=== PATIENT | female | born 1950 | race African-American/Black ===

== ENCOUNTER 2019-04-09 03:47 | Emergency (ER) | payer MEDICARE, OTHER ==
[~2019-04-09] VITALS: Ht 157.5 cm; Wt 117.9 kg
[~2019-04-09 03:47] MED LIST: ALLO100T PO; ATOR40TA59 PO; Amoxicillin/Potassium Clav PO; CALC600T4 PO; CARV25TA2 PO; CILO100T PO; CLOP75TA PO; FOLI1TAB16 PO; FURO40TA4 PO; HYDR-2868 PO; INSU100C4 SQ; INSU100I13 SQ; LORA10TA3 PO; MAGN400T5 PO; NIAC1000 PO; OMEG500C PO; POTA20TA12 PO; TELM80TA PO; VENTOLIN HFA18 GM IH
[2019-04-09 04:12] LABS: BASO # 0.1 x10^3/uL (0.0-0.2); BASO % 1 % (0-3); EOS % 0 % (0-3); HEMATOCRIT 43.3 % (36.0-47.0); HEMOGLOBIN 14.1 g/dL (12.0-15.5); LYMPH # 0.9 x10^3/uL (1.0-4.8); LYMPH % 10 % (24-48); MEAN CORPUSCULAR HEMOGLOBIN 28 pg (25-35); MEAN CORPUSCULAR HGB CONC 33 g/dL (31-37); MEAN CORPUSCULAR VOLUME 84 fL (79-100); MONO # 0.5 x10^3/uL (0.0-1.1); MONO % 6 % (0-9); NEUT # 7.4 x10^3/uL (1.8-7.7); NEUT % 83 % (31-73); PLATELET COUNT 288 x10^3/uL (140-400); RED BLOOD COUNT 5.14 x10^6/uL (3.50-5.40); RED CELL DISTRIBUTION WIDTH 15.1 % (11.5-14.5)
[2019-04-09 04:18] LABS: CALCIUM 9.1 mg/dL (8.5-10.1); CREATININE 2.2 mg/dL (0.6-1.0); GFR 26.7; POTASSIUM 3.8 mmol/L (3.5-5.1)
[2019-04-09 04:19] LABS: BILIRUBIN,URINE NEGATIVE (NEG); CLARITY,URINE CLEAR; COLOR,URINE YELLOW; NITRITE,URINE NEGATIVE (NEG); PROTEIN,URINE 30 mg/dL (NEG-TRACE); UROBILINOGEN,URINE 0.2 mg/dL (0.2 mg/dL)
[2019-04-09 04:24] LABS: ALBUMIN 3.1 g/dL (3.4-5.0); ALBUMIN/GLOBULIN RATIO 0.7 (1.0-1.7); TOTAL BILIRUBIN 0.2 mg/dL (0.2-1.0); TOTAL PROTEIN 7.4 g/dL (6.4-8.2)
[2019-04-09 04:30] LABS: SQUAMOUS EPITHELIAL CELL,UR MOD /LPF
[2019-04-09 04:31] LABS: BACTERIA,URINE FEW /HPF (0-FEW); RBC,URINE RARE /HPF (0-2)
[2019-04-09 05:30] VITALS: BP 159/71
--- NOTE | 2019-04-09 05:30 | PHYS DOC ---
Past Medical History Past Medical History: CVA, Diabetes-Type II, High Cholesterol, Hypertension, [place], Other Additional Past Medical Histor: gout Past Surgical History: Hysterectomy, Other Additional Past Surgical Histo: thyroid, left leg stents Alcohol Use: None Drug Use: None Adult General Chief Complaint Chief Complaint: HYPOGLYCEMIA HPI HPI 68-year-old female presents to the emergency department with complaints of altered mental status. Patient has underlying history of insulin-dependent diabetes, chronic kidney disease stage III she presents to the emergency departm ent via EMS after episode of hypoglycemia home. Patients states she was sleeping in the chair he noticed that she was difficult to arouse and had a little bit of emesis at that time. EMS was called for unresponsive. Blood sugar was recorded as low, she is provided with D50, 1 amp prior to arrival to the hospital. Upon arrival patient was alert and oriented 3. Blood sugar remained 130s. Review of Systems Review of Systems Constitutional: Denies fever or chills [] Respiratory: Denies cough or shortness of breath [] Cardiovascular: No additional information not addressed in HPI [] GI: Denies abdominal pain, nausea, vomiting, bloody stools or diarrhea [] : Denies dysuria or hematuria [] Musculoskeletal: Denies back pain or joint pain [] Neurologic: Denies headache, focal weakness or sensory changes [] All other systems were reviewed and found to be within normal limits, except as documented in this note. Allergies Allergies Allergies Coded Allergies Type Severity Reaction Last Updated Verified Penicillins Allergy Intermediate 04/09/19 Yes iodine Allergy Intermediate 09/16/14 Yes latex Allergy Intermediate Rash 02/20/14 Yes Physical Exam Physical Exam Constitutional: Well developed, well nourished, no acute distress, non-toxic appearance. [] HENT: Normocephalic, atraumatic, bilateral external ears normal, oropharynx moist, no oral exudates, nose normal. [] Eyes: PERRLA, EOMI, conjunctiva normal, no discharge. [] Cardiovascular:Heart rate regular rhythm, no murmur [] Lungs & Thorax: Bilateral breath sounds clear to auscultation [] Abdomen: Bowel sounds normal, soft, no tenderness, no masses, no pulsatile masses. [] Skin: Warm, dry, no erythema, no rash. [] Extremities: No tenderness, no edema. [] Neurologic: Alert and oriented X 3, no focal deficits noted. [] Psychologic: Affect normal, judgement normal, mood normal. [] Current Patient Data Lab Values Laboratory Tests Test 04/09/19 03:51 04/09/19 03:52 04/09/19 04:10 04/09/19 05:12 Glucose (Fingerstick) 123 mg/dL (70-99) H 119 mg/dL (70-99) H White Blood Count 9.0 x10^3/uL (4.0-11.0) Red Blood Count 5.14 x10^6/uL (3.50-5.40) Hemoglobin 14.1 g/dL (12.0-15.5) Hematocrit 43.3 % (36.0-47.0) Mean Corpuscular Volume 84 fL (79-100) Mean Corpuscular Hemoglobin 28 pg (25-35) Mean Corpuscular Hemoglobin Concent 33 g/dL (31-37) Red Cell Distribution Width 15.1 % (11.5-14.5) H Platelet Count 288 x10^3/uL (140-400) Neutrophils (%) (Auto) 83 % (31-73) H Lymphocytes (%) (Auto) 10 % (24-48) L Monocytes (%) (Auto) 6 % (0-9) Eosinophils (%) (Auto) 0 % (0-3) Basophils (%) (Auto) 1 % (0-3) Neutrophils # (Auto) 7.4 x10^3/uL (1.8-7.7) Lymphocytes # (Auto) 0.9 x10^3/uL (1.0-4.8) L Monocytes # (Auto) 0.5 x10^3/uL (0.0-1.1) Eosinophils # (Auto) 0.0 x10^3/uL (0.0-0.7) Basophils # (Auto) 0.1 x10^3/uL (0.0-0.2) Sodium Level 141 mmol/L (136-145) Potassium Level 3.8 mmol/L (3.5-5.1) Chloride Level 105 mmol/L (98-107) Carbon Dioxide Level 31 mmol/L (21-32) Anion Gap 5 (6-14) L Blood Urea Nitrogen 40 mg/dL (7-20) H Creatinine 2.2 mg/dL (0.6-1.0) H Estimated GFR (Cockcroft-Gault) 26.7 BUN/Creatinine Ratio 18 (6-20) Glucose Level 136 mg/dL (70-99) H Calcium Level 9.1 mg/dL (8.5-10.1) Total Bilirubin 0.2 mg/dL (0.2-1.0) Aspartate Amino Transferase (AST) 30 U/L (15-37) Alanine Aminotransferase (ALT) 25 U/L (14-59) Alkaline Phosphatase 49 U/L (46-116) Total Protein 7.4 g/dL (6.4-8.2) Albumin 3.1 g/dL (3.4-5.0) L Albumin/Globulin Ratio 0.7 (1.0-1.7) L Urine Collection Type Unknown Urine Color Yellow Urine Clarity Clear Urine pH 6.0 Urine Specific [place] 1.015 Urine Protein 30 mg/dL (NEG-TRACE) Urine Glucose (UA) 250 mg/dL (NEG) Urine Ketones (Stick) Negative mg/dL (NEG) Urine Blood Negative (NEG) Urine Nitrite Negative (NEG) Urine Bilirubin Negative (NEG) Urine Urobilinogen Dipstick 0.2 mg/dL (0.2 mg/dL) Urine Leukocyte Esterase Negative (NEG) Urine RBC Rare /HPF (0-2) Urine WBC 1-4 /HPF (0-4) Urine Squamous Epithelial Cells Mod /LPF Urine Bacteria Few /HPF (0-FEW) Urine Mucus Slight /LPF Laboratory Tests 04/09/19 03:52 Laboratory Tests 04/09/19 03:52 EKG EKG [] Radiology/Procedures Radiology/Procedures [] Course & Med Decision Making Course & Med Decision Making Pertinent Labs and Imaging studies reviewed. (See chart for details) []68-year-old female presents to the emergency department with complaints of altered mental status. Patient has underlying history of insulin-dependent diabetes, chronic kidney disease stage III she presents to the emergency department via EMS after episode of hypoglycemia home. Patients states she was sleeping in the chair he noticed that she was difficult to arouse and had a little bit of emesis at that time. EMS was called for unresponsive. Blood sugar was recorded as low, she is provided with D50, 1 amp prior to arrival to the hospital. Upon arrival patient was alert and oriented 3. Blood sugar remained 130s. Patient with episode of hypoglycemia at home prior to arrival EMS arrived with amp of D50 provided BS remained stable in the ER Labs reviewed, CKD 3 BS 119 - 136 Discussed with family at bedside Agree to dc home with follow up as outpatient Return precautions provided Dragon Disclaimer Dragon Disclaimer This electronic medical record was generated, in whole or in part, using a voice recognition dictation system. Departure Departure Impression: Primary Impression: AMS (altered mental status) Additional Impression: Hypoglycemia associated with diabetes Disposition: HOME, SELF-CARE Condition: IMPROVED Referrals: PATRICIA DOLL MD (PCP) Patient Instructions: Hypoglycemia (Low Blood Sugar) Additional Instructions: Recommend follow up with PCP 3 - 5 days Return to the ER with worsening symptoms, intractable pain, fever, altered mental status Tylenol/Motrin as needed for pain Recommend a light snack at night prior to bed to help with hypoglycemic episodes Call diabetic physician to let her know you were in the ER for hypoglycemia Problem Qualifiers Primary Impression: AMS (altered mental status) Altered mental status type: unspecified Qualified Codes: R41.82 - Altered mental status, unspecified CHERELLE FORBES MD Apr 09, 2019 05:30
[2019-04-10] MEDS ORDERED: LEVO25TA4 PO (08:19)
[2019-04-10] MEDS ORDERED: LATA2.5D3 OP (08:19)
== END 2019-04-09 05:50 | disposition home or self-care (01) ==
LOC: ER 03:47
DX: R41.82 Altered mental status, unspecified (principal); E11.649 Type 2 diabetes mellitus with hypoglycemia without coma; R11.10 Vomiting, unspecified; I63.9 Cerebral infarction, unspecified; E78.00 Pure hypercholesterolemia, unspecified; I10 Essential (primary) hypertension; I25.2 Old myocardial infarction; Z90.710 Acquired absence of both cervix and uterus; Z98.890 Other specified postprocedural states; Z88.0 Allergy status to penicillin; Z91.040 Latex allergy status; Z88.1 Allergy status to other antibiotic agents
CPT/HCPCS: 36415; 80053; 81001; 82962; 85025; 99284

== ENCOUNTER 2019-04-10 00:14 | Inpatient (IN) | payer MEDICARE, OTHER ==
[~2019-04-10] VITALS: Ht 157.5 cm; Wt 116.6 kg
--- NOTE | 2019-04-10 01:35 | PHYS DOC ---
Past Medical History Past Medical History: CVA, Diabetes-Type II, High Cholesterol, Hypertension, [place], Other Additional Past Medical Histor: gout Past Surgical History: Hysterectomy, Other Additional Past Surgical Histo: thyroid, left leg stents Smoking: Quit Greater Than 1 Year Alcohol Use: None Drug Use: None Adult General Chief Complaint Chief Complaint: HYPOGLYCEMIA HPI HPI Patient is a 68 year old F with a history of insulin dependent DM that presents to the ED via EMS with hypoglycemia. Family of pt reports that pt was incoherent and difficult to arouse around 2300 yesterday. Per EMS, blood glucose was 26 upon arrival and 46 after given 2x oral glucose and 25g dextrose en route. Review of records shows pt was in the ED yesterday for the same issue and was discharged home. Pt states she is compliant with her insulin and reports that she did not miss her dose or take too much to her knowledge. Pt denies CP, SOB, Ab pain, fevers, chills, or LOC. Review of Systems Review of Systems Constitutional: Denies fever or chills Eyes: Denies redness or eye pain HENT: Denies nasal congestion or sore throat Respiratory: Denies cough or shortness of breath Cardiovascular: Denies chest pain or palpitations GI: Denies abdominal pain, nausea, or vomiting : Denies dysuria or hematuria Musculoskeletal: Denies back pain; reports right leg pain Integument: Denies rash or skin lesions Neurologic: Denies headache, focal weakness or sensory changes, altered mental status secondary to hypoglycemia Complete systems were reviewed and found to be within normal limits, except as documented in this note. Current Medications Current Medications Allergies Allergies Allergies Coded Allergies Type Severity Reaction Last Updated Verified Penicillins Allergy Intermediate 04/09/19 Yes iodine Allergy Intermediate 09/16/14 Yes latex Allergy Intermediate Rash 02/20/14 Yes Physical Exam Physical Exam Constitutional: Well developed, well nourished, no acute distress, non-toxic appearance HENT: Normocephalic, atraumatic, oropharynx moist Eyes: PERRL, EOMI, conjunctiva normal, no discharge Neck: Normal range of motion, no tenderness, supple Cardiovascular: Heart rate normal, regular rhythm Lungs & Thorax: Bilateral breath sounds clear to auscultation, no wheezing Abdomen: Soft, no tenderness Skin: Warm, dry, no erythema, no rash Back: No tenderness, no CVA tenderness Extremities: No tenderness, ROM intact, no edema. Right lower extremity tender to palpation, without deformity, erythema, swelling. 2+ DP and PT pulses bilaterally Neurologic: Alert and oriented X 3, normal motor function, normal sensory function, no focal deficits noted Psychologic: Affect normal, judgement normal, mood normal Current Patient Data Vital Signs Vital Signs Date Time Temp Pulse Resp B/P (MAP) Pulse Ox O2 Delivery O2 Flow Rate FiO2 04/10/19 00:22 86 20 125/59 (81) 100 Room Air 04/10/19 00:18 97.7 97.7 Lab Values Laboratory Tests Test 04/10/19 00:21 04/10/19 00:53 04/10/19 01:20 Glucose (Fingerstick) 104 mg/dL (70-99) H 107 mg/dL (70-99) H White Blood Count 9.5 x10^3/uL (4.0-11.0) Red Blood Count 5.05 x10^6/uL (3.50-5.40) Hemoglobin 14.1 g/dL (12.0-15.5) Hematocrit 42.6 % (36.0-47.0) Mean Corpuscular Volume 85 fL (79-100) Mean Corpuscular Hemoglobin 28 pg (25-35) Mean Corpuscular Hemoglobin Concent 33 g/dL (31-37) Red Cell Distribution Width 15.4 % (11.5-14.5) H Platelet Count 302 x10^3/uL (140-400) Neutrophils (%) (Auto) 70 % (31-73) Lymphocytes (%) (Auto) 19 % (24-48) L Monocytes (%) (Auto) 9 % (0-9) Eosinophils (%) (Auto) 1 % (0-3) Basophils (%) (Auto) 1 % (0-3) Neutrophils # (Auto) 6.6 x10^3/uL (1.8-7.7) Lymphocytes # (Auto) 1.8 x10^3/uL (1.0-4.8) Monocytes # (Auto) 0.8 x10^3/uL (0.0-1.1) Eosinophils # (Auto) 0.1 x10^3/uL (0.0-0.7) Basophils # (Auto) 0.1 x10^3/uL (0.0-0.2) Prothrombin Time 13.5 SEC (11.7-14.0) Prothrombin Time INR 1.1 (0.8-1.1) Activated Partial Thromboplast Time 28 SEC (24-38) Sodium Level 142 mmol/L (136-145) Potassium Level 3.9 mmol/L (3.5-5.1) Chloride Level 102 mmol/L (98-107) Carbon Dioxide Level 29 mmol/L (21-32) Anion Gap 11 (6-14) Blood Urea Nitrogen 37 mg/dL (7-20) H Creatinine 2.4 mg/dL (0.6-1.0) H Estimated GFR (Cockcroft-Gault) 24.1 BUN/Creatinine Ratio 15 (6-20) Glucose Level 96 mg/dL (70-99) Calcium Level 9.3 mg/dL (8.5-10.1) Magnesium Level 2.4 mg/dL (1.8-2.4) Total Bilirubin 0.2 mg/dL (0.2-1.0) Aspartate Amino Transferase (AST) 29 U/L (15-37) Alanine Aminotransferase (ALT) 23 U/L (14-59) Alkaline Phosphatase 57 U/L (46-116) Creatine Kinase 276 U/L (26-192) H Creatine Kinase MB (Mass) 3.0 ng/mL (0.0-3.6) Creatine Kinase MB Relative Index 1.1 % (0-4) Troponin I Quantitative < 0.017 ng/mL (0.000-0.055) Total Protein 7.8 g/dL (6.4-8.2) Albumin 3.3 g/dL (3.4-5.0) L Albumin/Globulin Ratio 0.7 (1.0-1.7) L Lipase 193 U/L (73-393) Laboratory Tests 04/10/19 01:20 Laboratory Tests 04/10/19 01:20 EKG EKG [] Radiology/Procedures Radiology/Procedures PROCEDURE: CHEST AP ONLY AP chest x-ray HISTORY: Altered mental status. FINDINGS: Heart size normal. Aortic arch calcified plaque. No pneumothorax, pulmonary opacities or pleural effusions. Bones are unremarkable. IMPRESSION: No acute process. Electronically signed by: Nasir Shaffer MD (04/10/2019 1:45 AM) [facility] PROCEDURE: TIBIA FIBULA RIGHT Right tibia-fibula AP lateral x-rays HISTORY: Right leg pain. FINDINGS: Meniscal chondrocalcinosis of the knee. No fracture or dislocation of the tibia and fibula. Mild calf edema may be present. IMPRESSION: No acute osseous injury. Electronically signed by: Nasir Shaffer MD (04/10/2019 3:26 AM) [facility] Course & Med Decision Making Course & Med Decision Making Pertinent Labs and Imaging studies reviewed. (See chart for details) Pt is a 68yo F that presents to the ED via EMS for hypoglycemia. Per EMS patients BS was 26 upon arrival and 46 after 2x oral glucose and 25mg of Dextrose. Pts BS up to 106 in the ED. Extensive discussion with patient that due to prior ER visit for hypoglycemia yesterday patient will need to be admitted for further evaluation. Patient was understanding and agreeable with plan. 0200: Pt now reporting R posterior R leg pain. XR of R LE ordered. without acute fracture/dislocation. Patient requiring admission for further evaluation and treatment. Discussed with Dr. Martinez (hospitalist) who is in agreement with admission. Discussed findings and plan with patient and family, who acknowledge understanding and agreement. Dragon Disclaimer Dragon Disclaimer This electronic medical record was generated, in whole or in part, using a voice recognition dictation system. Departure Departure Impression: Primary Impression: Altered mental status Additional Impression: Hypoglycemia Disposition: ADMITTED INPATIENT Admitting Physician: SEVEN Mejia) Condition: STABLE Referrals: PATRICIA DOLL MD (PCP) Problem Qualifiers Primary Impression: Altered mental status Altered mental status type: unspecified Qualified Codes: R41.82 - Altered mental status, unspecified OLESYA ZABALA DO Apr 10, 2019 01:35
[2019-04-10 01:36] LABS: BASO # 0.1 x10^3/uL (0.0-0.2); BASO % 1 % (0-3); EOS # 0.1 x10^3/uL (0.0-0.7); EOS % 1 % (0-3); HEMATOCRIT 42.6 % (36.0-47.0); HEMOGLOBIN 14.1 g/dL (12.0-15.5); LYMPH # 1.8 x10^3/uL (1.0-4.8); LYMPH % 19 % (24-48); MEAN CORPUSCULAR HEMOGLOBIN 28 pg (25-35); MEAN CORPUSCULAR HGB CONC 33 g/dL (31-37); MEAN CORPUSCULAR VOLUME 85 fL (79-100); MONO # 0.8 x10^3/uL (0.0-1.1); MONO % 9 % (0-9); NEUT # 6.6 x10^3/uL (1.8-7.7); NEUT % 70 % (31-73); PLATELET COUNT 302 x10^3/uL (140-400); RED BLOOD COUNT 5.05 x10^6/uL (3.50-5.40); RED CELL DISTRIBUTION WIDTH 15.4 % (11.5-14.5); WHITE BLOOD COUNT 9.5 x10^3/uL (4.0-11.0)
[2019-04-10 01:44] LABS: PROTHROMBIN TIME PATIENT 13.5 SEC (11.7-14.0)
[2019-04-10] MEDS ORDERED: IV DEXTROSE 5% 250 ML BAG. IV PRN (01:45)
[2019-04-10] MEDS ORDERED: ONDANSETRON PF 4 MG/2 ML VIAL. IV PRN (01:45)
[2019-04-10] MEDS ORDERED: DEXTROSE 50% 25 GM / 50ML DISP.SYRIN. IV PRN (01:45)
[2019-04-10 01:46] LABS: CALCIUM 9.3 mg/dL (8.5-10.1); CREATININE 2.4 mg/dL (0.6-1.0); GFR 24.1; POTASSIUM 3.9 mmol/L (3.5-5.1)
--- NOTE | 2019-04-10 01:48 | RAD ---
AP chest x-ray HISTORY: Altered mental status. FINDINGS: Heart size normal. Aortic arch calcified plaque. No pneumothorax, pulmonary opacities or pleural effusions. Bones are unremarkable. IMPRESSION: No acute process. Electronically signed by: Nasir Shaffer MD (04/10/2019 1:45 AM) [facility] [place]
[2019-04-10 01:52] LABS: ALBUMIN 3.3 g/dL (3.4-5.0); ALBUMIN/GLOBULIN RATIO 0.7 (1.0-1.7); MAGNESIUM 2.4 mg/dL (1.8-2.4); TOTAL BILIRUBIN 0.2 mg/dL (0.2-1.0); TOTAL PROTEIN 7.8 g/dL (6.4-8.2)
[2019-04-10] MEDS ORDERED: fentaNYL PF VIAL 100 MCG/2 ML VIAL IVP ONE (02:30)
--- NOTE | 2019-04-10 02:50 | NUR ---
The patient, AMIRA MOTA, 68 y/o, F admitted by ARLENE MORRISON III, DO, was given written information regarding hospital policies, unit procedures and contact persons. RN received report from Maxine CUMMINGS in the ED at 0240, patient was then transported from ED to room 412 via gurney at 0250 with at bedside. RN performed a head to toe assessment at that time, VSS, afebrile, and no pain reported at that time. Bed is in lowest locked position and call light within reach. Valuables were checked and left in the room with the patient. RN will continue to monitor patient closely.
--- NOTE | 2019-04-10 03:28 | RAD ---
Right tibia-fibula AP lateral x-rays HISTORY: Right leg pain. FINDINGS: Meniscal chondrocalcinosis of the knee. No fracture or dislocation of the tibia and fibula. Mild calf edema may be present. IMPRESSION: No acute osseous injury. Electronically signed by: Nasir Shaffer MD (04/10/2019 3:26 AM) [facility]
[2019-04-10 07:00] VITALS: BP 153/70
[2019-04-10] MEDS ORDERED: HYDROcodone/APAP 5/325MG 1 TAB TABLET PO PRN (07:15)
[2019-04-10] MEDS: INSULIN LISPRO 300 UNITS/3 ML VIAL. SQ SCH ×2 (08:00→12:00)
[2019-04-10] MEDS ORDERED: LATA2.5D3 OP (08:19)
[2019-04-10] MEDS ORDERED: LEVO25TA4 PO (08:19)
--- NOTE | 2019-04-10 08:28 | PDOC1 ---
History and Physical Date of Admission Date of Admission DATE: 04/10/19 TIME: 08:13 Identification/Chief Complaint Chief Complaint Altered mental status Source Source: Caregiver, Chart review, Patient History of Present Illness History of Present Illness Ms Marshall is a 68 year old F w/PMHx CVA, Diabetes-Type II, High Cholesterol, Hypertension, PVD, CAD, Gout who presents to the ED via EMS with hypoglycemia. Family of pt reports that pt was incoherent and difficult to arouse around 2300 04/09/19. Per EMS, blood glucose was 26 upon arrival and 46 after given 2x oral glucose and 25g dextrose en route. She was in the ED 04/09/19 for the same issue and was discharged home. Pt states she is compliant with her insulin and reports that she did not miss her dose or take too much to her knowledge. She does not take sulfonylureas or metformin, but does also take trulicity weekly. Pt denies CP, SOB, Abd pain, fevers, chills, LOC. No recent sick contacts. Pt now reporting R posterior R leg pain. XR negative Called for admission on D5 infusion for further treatment. Past Medical History Cardiovascular: CAD, HTN, GA, Hyperlipidemia, Other Pulmonary: Asthma CENTRAL NERVOUS SYSTEM: CVA GI: GERD Psych: Depression Musculoskeletal: Osteoarthritis Endocrine: Diabetes, Hypothyroidism Past Surgical History Past Surgical History: Breast Biopsy, Hysterectomy, Other Family History Family History: Family History Unknown Social History Smoke: No ALCOHOL: none Drugs: None Current Medications Current Medications Current Medications Ondansetron HCl (Zofran) 4 mg PRN Q8HRS PRN IV NAUSEA/VOMITING; Start 04/10/19 at 01:45; Stop 04/11/19 at 01:44 Insulin Human Lispro (HumaLOG) 0-5 UNITS TIDWMEALS SQ ; Start 04/10/19 at 08:00 Dextrose (Dextrose 50%-Water Syringe) 12.5 gm PRN Q15MIN PRN IV SEE COMMENTS; Start 04/10/19 at 01:45 Dextrose (Iv Dextrose 5%) 250 ml PRN Q15MIN PRN IV SEE COMMENTS; Start 04/10/19 at 01:45 Fentanyl Citrate (Fentanyl 2ml Vial) 50 mcg 1X ONCE IVP Last administered on 04/10/19at 02:32; Start 04/10/19 at 02:30; Stop 04/10/19 at 02:31; Status DC Acetaminophen/ Hydrocodone Bitart (Lortab 5/325) 1 tab PRN Q4HRS PRN PO MODERATE PAIN; Start 04/10/19 at 07:15 Active Scripts Active [Amoxicillin/Potassium Clav] 1 TAB Tablet 1 Tab PO BID Reported Calcium (Calcium Carbonate) 600 Mg Tablet 600 Mg PO HS Magnesium Oxide 400 Mg Tablet 2 Tab PO BID Fish Oil ([place]-3 Fatty Acids) 500 Mg Capsule.dr 2,000 Mg PO BID Lantus Solostar (Insulin Glargine,Hum.rec.anlog) 100 Unit/1 Ml Insuln.pen 65 Unit SQ BID Novolog (Insulin Aspart) 100 Unit/1 Ml Cartridge 30 Unit SQ TIDAC Ventolin Hfa Inhaler (Albuterol Sulfate) 18 Gm Hfa.aer.ad 2 Puff IH PRN Q4-6HRS Atorvastatin Calcium 40 Mg Tablet 1 Tab PO QHS Niaspan (Niacin) 1,000 Mg Tab.er.24h 1 Tab PO QHS Potassium Chloride 20 Meq Tab.er.prt 1 Tab PO DAILY Furosemide 40 Mg Tablet 1 Tab PO DAILY Clopidogrel (Clopidogrel Bisulfate) 75 Mg Tablet 1 Tab PO DAILY Hydralazine Hcl 25 Mg Tablet 1 Tab PO BID Allopurinol 100 Mg Tablet 1 Tab PO DAILY Loratadine 10 Mg Tablet 1 Tab PO DAILY Folic Acid 1 Mg Tablet 1 Tab PO DAILY Cilostazol 100 Mg Tablet 1 Tab PO BID Micardis (Telmisartan) 80 Mg Tablet 1 Tab PO HS Carvedilol 25 Mg Tablet 1 Tab PO BID Allergies Allergies: Coded Allergies: Penicillins (Verified Allergy, Intermediate, 04/09/19) iodine (Verified Allergy, Intermediate, 09/16/14) latex (Verified Allergy, Intermediate, Rash, 02/20/14) ROS General: YES: Fatigue, Malaise; No: Chills, Night Sweats, Appetite, Other PSYCHOLOGICAL ROS: No: Anxiety, Behavioral Disorder, Concentration difficultie, Decreased libido, Depression, Disorientation, Hallucinations, Hostility, Irritablity, Memory difficulties, Mood Swings, Obsessive thoughts, Physical abuse, Sexual abuse, Sleep disturbances, Suicidal ideation, Other Eyes: No Blurry vision, No Decreased vision, No Double vision, No Dry eyes, No Excessive tearing, No Eye Pain, No Itchy Eyes, No Loss of vision, No Photophobia, No Scotomata, No Uses contacts, No Uses glasses, No Other HEENT: No: Heacaches, Visual Changes, Hearing change, Nasal congestion, Nasal discharge, Oral lesions, Sinus pain, Sore Throat, Epistaxis, Sneezing, Snoring, Tinnitus, Vertigo, Vocal changes, Other ALLERGY AND IMMUNOLOGY: No: Hives, Insect Bite Sensitivity, Itchy/Watery Eyes, Nasal Congestion, Post Nasal Drip, Seasonal Allergies, Other Hematological and Lymphatic: No: Bleeding Problems, Blood Clots, Blood Transfusions, Brusing, Night Sweats, Pallor, Swollen Lymph Nodes, Other ENDOCRINE: No: Breast Changes, Galactorrhea, Hair Pattern Changes, Hot Flashes, Malaise/lethargy, Mood Swings, Palpitations, Polydipsia/polyuria, Skin Changes, Temperature Intolerance, Unexpected Weight Changes, Other Breast: No New/Changing Breast Lumps, No Nipple changes, No Nipple discharge, N o Other Respiratory: No: Cough, Hemoptysis, Orthopnea, Pleuritic Pain, Shortness of breath, SOB with excertion, Sputum Changes, Stridor, Tachypnea, Wheezing, Other Cardiovascular: No Chest Pain, No Palpitations, No Orthopnea, No Paroxysmal Noc. Dyspnea, No Edema, No Lt Headedness, No Other Gastrointestinal: No Nausea, No Vomiting, No Abdominal Pain, No Diarrhea, No Constipation, No Melena, No Hematochezia, No Other Genitourinary: No Dysuria, No Frequency, No Incontinence, No Hematuria, No Retention, No Discharge, No Urgency, No Pain, No Flank Pain, No Other, No , No , No , No , No , No , No Musculoskeletal: No Gait Disturbance, No Joint Pain, No Joint Stiffness, No Joint Swelling, No Muscle Pain, No Muscular Weakness, No Pain In:, No Swelling In:, No Other Neurological: No Behavorial Changes, No Bowel/Bladder ControlChng, No Confusion, No Dizziness, No Gait Disturbance, No Headaches, No Impaired Coord/balance, No Memory Loss, No Numbness/Tingling, No Seizures, No Speech Problems, No Tremors, No Visual Changes, No Weakness, No Other Skin: No Dry Skin, No Eczema, No Hair Changes, No Lumps, No Mole Changes, No Mottling, No Nail Changes, No Pruritus, No Rash, No Skin Lesion Changes, No Other, No Acne Physical Exam General: Alert, Oriented X3, Cooperative, No acute distress HEENT: Atraumatic, PERRLA, EOMI, Mucous membr. moist/pink Lungs: Clear to auscultation, Normal air movement Heart: S1S2, RRR, no thrills, no rubs, no gallops, no murmurs Abdomen: Normal bowel sounds, Soft, No tenderness, No hepatosplenomegaly, No masses Rectal Exam: not examined Extremities: No clubbing, No cyanosis, No edema, Normal pulses, No tenderness/swelling Skin: No rashes, No breakdown, No significant lesion Neuro: Normal gait, Normal speech, Strength at 5/5 X4 ext, Normal tone, Sensation intact, Cranial nerves 3-12 NL, Reflexes 2+ Psych/Mental Status: Mental status NL, Mood NL Vitals Vitals Vital Signs Date Time Temp Pulse Resp B/P (MAP) Pulse Ox O2 Delivery O2 Flow Rate FiO2 04/10/19 02:50 Room Air 04/10/19 02:32 20 100 04/10/19 02:19 78 143/63 (89) 04/10/19 00:18 97.7 97.7 Labs Labs Laboratory Tests Test 04/10/19 00:21 04/10/19 00:53 04/10/19 01:20 04/10/19 03:44 Glucose (Fingerstick) 104 mg/dL (70-99) 107 mg/dL (70-99) 81 mg/dL (70-99) White Blood Count 9.5 x10^3/uL (4.0-11.0) Red Blood Count 5.05 x10^6/uL (3.50-5.40) Hemoglobin 14.1 g/dL (12.0-15.5) Hematocrit 42.6 % (36.0-47.0) Mean Corpuscular Volume 85 fL (79-100) Mean Corpuscular Hemoglobin 28 pg (25-35) Mean Corpuscular Hemoglobin Concent 33 g/dL (31-37) Red Cell Distribution Width 15.4 % (11.5-14.5) Platelet Count 302 x10^3/uL (140-400) Neutrophils (%) (Auto) 70 % (31-73) Lymphocytes (%) (Auto) 19 % (24-48) Monocytes (%) (Auto) 9 % (0-9) Eosinophils (%) (Auto) 1 % (0-3) Basophils (%) (Auto) 1 % (0-3) Neutrophils # (Auto) 6.6 x10^3/uL (1.8-7.7) Lymphocytes # (Auto) 1.8 x10^3/uL (1.0-4.8) Monocytes # (Auto) 0.8 x10^3/uL (0.0-1.1) Eosinophils # (Auto) 0.1 x10^3/uL (0.0-0.7) Basophils # (Auto) 0.1 x10^3/uL (0.0-0.2) Prothrombin Time 13.5 SEC (11.7-14.0) Prothromb Time International Ratio 1.1 (0.8-1.1) Activated Partial Thromboplast Time 28 SEC (24-38) Sodium Level 142 mmol/L (136-145) Potassium Level 3.9 mmol/L (3.5-5.1) Chloride Level 102 mmol/L (98-107) Carbon Dioxide Level 29 mmol/L (21-32) Anion Gap 11 (6-14) Blood Urea Nitrogen 37 mg/dL (7-20) Creatinine 2.4 mg/dL (0.6-1.0) Estimated GFR (Cockcroft-Gault) 24.1 BUN/Creatinine Ratio 15 (6-20) Glucose Level 96 mg/dL (70-99) Calcium Level 9.3 mg/dL (8.5-10.1) Magnesium Level 2.4 mg/dL (1.8-2.4) Total Bilirubin 0.2 mg/dL (0.2-1.0) Aspartate Amino Transf (AST/SGOT) 29 U/L (15-37) Alanine Aminotransferase (ALT/SGPT) 23 U/L (14-59) Alkaline Phosphatase 57 U/L (46-116) Creatine Kinase 276 U/L (26-192) Creatine Kinase MB (Mass) 3.0 ng/mL (0.0-3.6) Creatine Kinase MB Relative Index 1.1 % (0-4) Troponin I Quantitative < 0.017 ng/mL (0.000-0.055) Total Protein 7.8 g/dL (6.4-8.2) Albumin 3.3 g/dL (3.4-5.0) Albumin/Globulin Ratio 0.7 (1.0-1.7) Lipase 193 U/L (73-393) Test 04/10/19 07:57 Glucose (Fingerstick) 87 mg/dL (70-99) Laboratory Tests Test 04/10/19 00:21 04/10/19 00:53 04/10/19 01:20 04/10/19 03:44 Glucose (Fingerstick) 104 mg/dL (70-99) 107 mg/dL (70-99) 81 mg/dL (70-99) White Blood Count 9.5 x10^3/uL (4.0-11.0) Red Blood Count 5.05 x10^6/uL (3.50-5.40) Hemoglobin 14.1 g/dL (12.0-15.5) Hematocrit 42.6 % (36.0-47.0) Mean Corpuscular Volume 85 fL (79-100) Mean Corpuscular Hemoglobin 28 pg (25-35) Mean Corpuscular Hemoglobin Concent 33 g/dL (31-37) Red Cell Distribution Width 15.4 % (11.5-14.5) Platelet Count 302 x10^3/uL (140-400) Neutrophils (%) (Auto) 70 % (31-73) Lymphocytes (%) (Auto) 19 % (24-48) Monocytes (%) (Auto) 9 % (0-9) Eosinophils (%) (Auto) 1 % (0-3) Basophils (%) (Auto) 1 % (0-3) Neutrophils # (Auto) 6.6 x10^3/uL (1.8-7.7) Lymphocytes # (Auto) 1.8 x10^3/uL (1.0-4.8) Monocytes # (Auto) 0.8 x10^3/uL (0.0-1.1) Eosinophils # (Auto) 0.1 x10^3/uL (0.0-0.7) Basophils # (Auto) 0.1 x10^3/uL (0.0-0.2) Prothrombin Time 13.5 SEC (11.7-14.0) Prothromb Time International Ratio 1.1 (0.8-1.1) Activated Partial Thromboplast Time 28 SEC (24-38) Sodium Level 142 mmol/L (136-145) Potassium Level 3.9 mmol/L (3.5-5.1) Chloride Level 102 mmol/L (98-107) Carbon Dioxide Level 29 mmol/L (21-32) Anion Gap 11 (6-14) Blood Urea Nitrogen 37 mg/dL (7-20) Creatinine 2.4 mg/dL (0.6-1.0) Estimated GFR (Cockcroft-Gault) 24.1 BUN/Creatinine Ratio 15 (6-20) Glucose Level 96 mg/dL (70-99) Calcium Level 9.3 mg/dL (8.5-10.1) Magnesium Level 2.4 mg/dL (1.8-2.4) Total Bilirubin 0.2 mg/dL (0.2-1.0) Aspartate Amino Transf (AST/SGOT) 29 U/L (15-37) Alanine Aminotransferase (ALT/SGPT) 23 U/L (14-59) Alkaline Phosphatase 57 U/L (46-116) Creatine Kinase 276 U/L (26-192) Creatine Kinase MB (Mass) 3.0 ng/mL (0.0-3.6) Creatine Kinase MB Relative Index 1.1 % (0-4) Troponin I Quantitative < 0.017 ng/mL (0.000-0.055) Total Protein 7.8 g/dL (6.4-8.2) Albumin 3.3 g/dL (3.4-5.0) Albumin/Globulin Ratio 0.7 (1.0-1.7) Lipase 193 U/L (73-393) Test 04/10/19 07:57 Glucose (Fingerstick) 87 mg/dL (70-99) Images Images CXR - no acute process VTE Prophylaxis Ordered VTE Prophylaxis Devices: No VTE Pharmacological Prophylaxi: No Assessment/Plan Assessment/Plan A/P: Acute encephalopathy - metabolic 2/2 hypoglycemia [place] - likely vasomotor nephropathy Hypoglycemia - with trulicity dosing may need further observation. D5 H/o CVA - cont plavix Diabetes-Type II - hold insulin and GLP-1 High Cholesterol - cont statin Hypothyroidism - cont levothyroxine Hypertension PVD CAD Gout FEN - ADA PPX - Heparin FULL CODE Dispo - will observe until glucose stabilizes for 4 hours off D5 OLE BAUM MD Apr 10, 2019 08:28
[2019-04-10] MEDS ORDERED: LEVOTHYROXINE 25 MCG TABLET. PO SCH (09:00)
[2019-04-10] MEDS ORDERED: hydrALAZINE 25 MG TABLET PO SCH (09:00)
[2019-04-10] MEDS ORDERED: FOLIC ACID 1 MG TABLET. PO SCH (09:00)
[2019-04-10] MEDS ORDERED: ALLOPURINOL 100 MG TABLET. PO SCH (09:00)
[2019-04-10] MEDS ORDERED: CLOPIDOGREL BISULFATE 75 MG TABLET PO SCH (09:00)
[2019-04-10] MEDS ORDERED: CETIRIZINE HCL 10 MG TABLET. PO SCH (09:00)
[2019-04-10 11:00] VITALS: BP 138/56
[2019-04-10 15:00] VITALS: BP 132/60
--- NOTE | 2019-04-10 15:57 | NUR ---
Discharge Note: AMIRA MOTA [address] [place] [address] Discharge instructions and discharge home medications reviewed with Patient and Spouse re; hypoglycemia and a copy given. All questions have been answered and understanding verbalized. The following instructions and handouts were given: Hypoglycemia Discontinued lines and drains: 1 x PIV tip intact. Patient discharged to home with spouse
[2019-04-10] MEDS ORDERED: LATANOPROST 0.005% OPHTH SOLUTION 2.5ML BOTTLE. OU SCH (21:00)
[2019-04-10] MEDS ORDERED: ATORVASTATIN CALCIUM 40 MG TABLET. PO SCH (21:00)
--- NOTE | 2019-04-12 21:54 | PDOC3 ---
Discharge Summary Visit Information Date of Admission: Apr 10, 2019 Date of Discharge: Apr 10, 2019 Admitting Diagnosis: Acute encephalopathy Final Diagnosis Hypoglycemia Brief Hospital Course Allergies Allergies Coded Allergies Type Severity Reaction Last Updated Verified Penicillins Allergy Intermediate 04/09/19 Yes iodine Allergy Intermediate 09/16/14 Yes latex Allergy Intermediate Rash 02/20/14 Yes Brief Hospital Course Ms Marshall is a 68 year old F w/PMHx CVA, Diabetes-Type II, High Cholesterol, Hypertension, PVD, CAD, Gout who presents to the ED via EMS with hypoglycemia. Family of pt reports that pt was incoherent and difficult to arouse around 2300 04/09/19. Per EMS, blood glucose was 26 upon arrival and 46 after given 2x oral glucose and 25g dextrose en route. She was in the ED 04/09/19 for the same issue a nd was discharged home. Pt states she is compliant with her insulin and reports that she did not miss her dose or take too much to her knowledge. She does not take sulfonylureas or metformin, but does also take trulicity weekly. Pt denies CP, SOB, Abd pain, fevers, chills, LOC. No recent sick contacts. Pt now reporting R posterior R leg pain. XR negative Observed until glucose stabilized for 4 hours off D5 Advised to hold trulicity until f/u and reduce home insulin glargine by 25%. Problem list: Acute encephalopathy - metabolic 2/2 hypoglycemia [place] - likely vasomotor nephropathy Hypoglycemia - with trulicity dosing may need further observation. D5 H/o CVA - cont plavix Diabetes-Type II - hold insulin and GLP-1 High Cholesterol - cont statin Hypothyroidism - cont levothyroxine Hypertension PVD CAD Gout Greater than 135 minutes spent on same day admit and d/c Discharge Information Condition at Discharge: Improved Follow Up: Weeks (1) Disposition/Orders: D/C to Home Scheduled Albuterol Sulfate (Ventolin Hfa Inhaler) 18 Gm Hfa.aer.ad, 2 PUFF IH PRN Q4- 6HRS, #1 (Reported) Entered as Reported by: ISAAC ADAN on 02/20/14 0850 Allopurinol (Allopurinol) 100 Mg Tablet, 1 TAB PO DAILY, #30 Ref 5 (Reported) Entered as Reported by: ISAAC ADAN on 02/20/14 0848 Last Action: Continued on 04/10/19820 by OLE BAUM MD Atorvastatin Calcium (Atorvastatin Calcium) 40 Mg Tablet, 1 TAB PO QHS, #90 Ref 3 (Reported) Entered as Reported by: ISAAC ADAN on 02/20/14 0850 Last Action: Continued on 04/10/19820 by OLE BAUM MD Calcium Carbonate (Calcium) 600 Mg Tablet, 600 MG PO HS, (Reported) Entered as Reported by: ISAAC ADAN on 02/20/14 0854 Carvedilol (Carvedilol) 25 Mg Tablet, 1 TAB PO BID, #180 Ref 1 (Reported) Entered as Reported by: ISAAC ADAN on 02/20/14 0845 Cilostazol (Cilostazol) 100 Mg Tablet, 1 TAB PO BID, #60 Ref 5 (Reported) Entered as Reported by: ISAAC ADAN on 02/20/14 0846 Clopidogrel Bisulfate (Clopidogrel) 75 Mg Tablet, 1 TAB PO DAILY, #90 Ref 1 (Reported) Entered as Reported by: ISAAC ADAN on 02/20/1449 Last Action: Continued on 04/10/19820 by OLE BAUM MD Folic Acid (Folic Acid) 1 Mg Tablet, 1 TAB PO DAILY, #90 Ref 1 (Reported) Entered as Reported by: ISAAC ADAN on 02/20/14 0847 Last Action: Continued on 04/10/19820 by OLE BAUM MD Furosemide (Furosemide) 40 Mg Tablet, 1 TAB PO DAILY, #30 Ref 5 (Reported) Entered as Reported by: ISAAC ADAN on 02/20/14 0849 Hydralazine Hcl (Hydralazine Hcl) 25 Mg Tablet, 1 TAB PO BID, #60 Ref 5 (Reported) Entered as Reported by: ISAAC ADAN on 02/20/14 0848 Last Action: Continued on 04/10/19820 by OLE BAUM MD Insulin Aspart (Novolog) 100 Unit/1 Ml Cartridge, 30 UNIT SQ TIDAC, (Reported) Entered as Reported by: ISAAC ADAN on 02/20/14 0851 Insulin Glargine,Hum.rec.anlog (Lantus Solostar) 100 Unit/1 Ml Insuln.pen, 65 UNIT SQ BID, (Reported) Entered as Reported by: ISAAC ADAN on 02/20/14 0852 Latanoprost (Latanoprost) 2.5 Ml Drops, 1 DROP OP DAILY for 30 Days, (Reported) Entered as Reported by: OLE BAUM MD on 04/10/19818 Last Action: Continued on 04/10/19820 by OLE BAUM MD Levothyroxine Sodium (Levothyroxine Sodium) 25 Mcg Tablet, 25 MCG PO DAILY for hypothyroidism for 30 Days, #30 (Reported) Entered as Reported by: OLE BAUM MD on 04/10/19818 Last Action: Continued on 04/10/19820 by OLE BAUM MD Loratadine (Loratadine) 10 Mg Tablet, 1 TAB PO DAILY, #30 Ref 5 (Reported) Entered as Reported by: ISAAC ADAN on 02/20/14 0847 Last Action: Converted on 04/10/19820 by OLE BAUM MD Magnesium Oxide (Magnesium Oxide) 400 Mg Tablet, 2 TAB PO BID, #30 Ref 5 (Reported) Entered as Reported by: ISAAC ADAN on 02/20/14 0853 Niacin (Niaspan) 1,000 Mg Tab.er.24h, 1 TAB PO QHS, #30 Ref 5 (Reported) Entered as Reported by: ISAAC ADAN on 02/20/14 0850 [place]-3 Fatty Acids (Fish Oil) 500 Mg Capsule.dr, 2,000 MG PO BID, (Reported) Entered as Reported by: ISAAC ADAN on 02/20/14 0853 Potassium Chloride (Potassium Chloride) 20 Meq Tab.er.prt, 1 TAB PO DAILY, #30 Ref 5 (Reported) Entered as Reported by: ISAAC ADAN on 02/20/14 0849 Telmisartan (Micardis) 80 Mg Tablet, 1 TAB PO HS, #30 Ref 5 (Reported) Entered as Reported by: ISAAC ADAN on 02/20/14 0845 Discontinued Medications [Amoxicillin/Potassium Clav] 1 TAB TABLET, 1 TAB PO BID, #20 Prescribed by: ANA LUISA HALL on 09/19/14 1544 OLE BAUM MD Apr 12, 2019 21:54
== END 2019-04-10 15:50 | disposition home or self-care (01) | DRG 637 ==
LOC: ER 00:14 → 4 NORTH 01:30
PROVIDERS: ADMIT Internal Medicine; ATTEND Internal Medicine
DX: E11.649 Type 2 diabetes mellitus with hypoglycemia without coma (principal); G93.41 Metabolic encephalopathy; M19.90 Unspecified osteoarthritis, unspecified site; N17.0 Acute kidney failure with tubular necrosis; K21.9 Gastro-esophageal reflux disease without esophagitis; F32.9 Major depressive disorder, single episode, unspecified; E78.00 Pure hypercholesterolemia, unspecified; I10 Essential (primary) hypertension; E78.5 Hyperlipidemia, unspecified; E11.51 Type 2 diabetes mellitus with diabetic peripheral angiopathy without gangrene; I25.10 Atherosclerotic heart disease of native coronary artery without angina pectoris; M10.9 Gout, unspecified; J45.909 Unspecified asthma, uncomplicated; E03.9 Hypothyroidism, unspecified; I25.2 Old myocardial infarction; Z87.891 Personal history of nicotine dependence; Z90.710 Acquired absence of both cervix and uterus; Z79.4 Long term (current) use of insulin; Z91.040 Latex allergy status; Z88.0 Allergy status to penicillin; Z88.8 Allergy status to other drugs, medicaments and biological substances; Z86.73 Personal history of transient ischemic attack (TIA), and cerebral infarction without residual deficits
CPT/HCPCS: 36415; 71045; 73590; 80053; 82553; 82962; 83690; 83735; 84484; 85025; 85610; 85730; J1815; J3010; 99285-25; G0378

== ENCOUNTER → 2020-03-29 | Outpatient (CLI) | payer MEDICARE, OTHER ==
[~2020-03-29] MED LIST changes: -CALC600T4 PO; +CALC600T6 PO; +LATA2.5D3 OP; +LEVO25TA4 PO
--- NOTE | 2020-03-29 16:57 | RAD ---
Examination: Ultrasound kidneys HISTORY: History of chronic kidney disease stage III COMPARISON: None available. FINDINGS: The right kidney measures 10.2 x 4.8 x 4.3 cm. The left kidney measures 10.5 x 4.4 x 5.4 cm. Cystic s tructures identified in the left kidney with largest measuring 2 cm likely cysts. Urinary bladder is mildly distended. Small amount of postvoid residual urine identified in the gallbladder. IMPRESSION: 1.Left renal cysts with the largest measuring 2 cm. 2. Small postvoid residual urine identified in the urinary bladder.. Electronically signed by: Cash Norman MD (03/29/2020 4:55 PM) [id number]
== END ==
LOC: US 14:50
PROVIDERS: ATTEND Nurse Practitioner Adult Health
DX: N18.4 Chronic kidney disease, stage 4 (severe) (principal); N28.1 Cyst of kidney, acquired
CPT/HCPCS: 76770

== ENCOUNTER → 2020-07-14 | Outpatient (CLI) | payer MEDICARE, OTHER ==
[~2020-07-14] MED LIST changes: -CALC600T6 PO; +CALC600T60 PO
--- NOTE | 2020-07-14 15:41 | KCIC ---
EXAM: Renal sonogram. HISTORY: Chronic renal insufficiency. TECHNIQUE: Sonographic imaging of the kidneys and bladder was performed. COMPARISON: 03/29/2020. FINDINGS: The exam is limited due to patient body habitus. The kidneys are normal in size. No solid o r cystic renal lesion is seen. There is a 10 mm echogenic lesion within the left kidney, likely due t o a nonobstructing stone. The prevoid bladder volume is 41 cc. The ureteral jets are not well seen on this exam. IMPRESSION: 1. Suspected nonobstructing left renal stone. 2. No acute sonographic finding. 3. Note is made that previously described left renal cyst are not seen on this exam. However, the exa m is limited due to body habitus. Electronically signed by: Fanny Curry MD (07/14/2020 3:39 PM) [facility]
== END ==
LOC: KCIC US 14:44
PROVIDERS: ATTEND Nurse Practitioner Adult Health
DX: N18.32 Chronic kidney disease, stage 3b (principal)
CPT/HCPCS: 76770

== ENCOUNTER 2021-01-18 07:30 | Inpatient (IN) | payer MEDICARE, OTHER ==
[~2021-01-18] VITALS: Ht 160 cm; Wt 113.0 kg
[~2021-01-18 07:30] MED LIST changes: +MAGN400T48 PO; -MAGN400T5 PO
[2021-01-18 08:25] LABS: BASO # 0.1 x10^3/uL (0.0-0.2); BASO % 1 % (0-3); EOS # 0.1 x10^3/uL (0.0-0.7); EOS % 1 % (0-3); HEMATOCRIT 40.3 % (36.0-47.0); HEMOGLOBIN 13.7 g/dL (12.0-15.5); LYMPH # 1.4 x10^3/uL (1.0-4.8); LYMPH % 14 % (24-48); MEAN CORPUSCULAR HEMOGLOBIN 29 pg (25-35); MEAN CORPUSCULAR HGB CONC 34 g/dL (31-37); MEAN CORPUSCULAR VOLUME 86 fL (79-100); MONO # 0.7 x10^3/uL (0.0-1.1); MONO % 7 % (0-9); NEUT # 7.4 x10^3/uL (1.8-7.7); NEUT % 77 % (31-73); PLATELET COUNT 240 x10^3/uL (140-400); RED BLOOD COUNT 4.71 x10^6/uL (3.50-5.40); RED CELL DISTRIBUTION WIDTH 14.8 % (11.5-14.5); WHITE BLOOD COUNT 9.7 x10^3/uL (4.0-11.0)
[2021-01-18 08:43] LABS: ALBUMIN 2.9 g/dL (3.4-5.0); ALBUMIN/GLOBULIN RATIO 0.6 (1.0-1.7); CALCIUM 9.7 mg/dL (8.5-10.1); CREATININE 2.2 mg/dL (0.6-1.0); GFR 26.5; PHOSPHORUS 4.2 mg/dL (2.6-4.7); TOTAL BILIRUBIN 0.5 mg/dL (0.2-1.0); TOTAL PROTEIN 7.4 g/dL (6.4-8.2)
[2021-01-18 08:44] LABS: MAGNESIUM 2.2 mg/dL (1.8-2.4)
[2021-01-18 09:01] LABS: BILIRUBIN,URINE NEGATIVE (NEG); CLARITY,URINE CLEAR; COLOR,URINE YELLOW; NITRITE,URINE NEGATIVE (NEG); PROTEIN,URINE >=300 mg/dL (NEG-TRACE); UROBILINOGEN,URINE 0.2 mg/dL (0.2 mg/dL)
--- NOTE | 2021-01-18 09:12 | PHYS DOC ---
Past Medical History Past Medical History: CVA, Diabetes-Type II, High Cholesterol, Hypertension, HI, Other Additional Past Medical Histor: gout Past Surgical History: Hysterectomy, Other Additional Past Surgical Histo: thyroid, left leg stents Smoking Status: Former Smoker Alcohol Use: None Drug Use: None General Adult EDM: Chief Complaint: OTHER COMPLAINTS HPI: HPI: Patient is a 70 year old female who was brought in by EMS from home for generalized weakness and inability to ambulate or care for herself. Her is her primary caregiver. The patient requires either wheelchair, walker or [place] lift for mobility. She has had multiple strokes and has chronic weakness from this. Her called for lift assist sometime yesterday, and she was helped onto a recliner, and she has been there since then, unable to get up, her unable to get her up. She has had a lot of diarrhea, and has stool on her clothing, on her buttocks, legs and feet. She denies any pain or discomfort. She denies chest pain, dyspnea, headache, dizziness. She denies syncope. She denies new or changed or focal weakness. She denies abdominal pain, nausea vomiting. She is chronically incontinent of stool and urine, so this is not new. She is unable to articulate if she is had any specific urinary symptoms. No reported fever or chills. She admits that she and her are at the point now where they feel neither one of them can care for her adequately at home and their current condition. Review of Systems: Review of Systems: Constitutional: Denies fever or chills. [] Eyes: Denies change in visual acuity. [] HENT: Denies nasal congestion or sore throat. [] Respiratory: Denies cough or shortness of breath. [] Cardiovascular: Denies chest pain. Denies syncope. Chronic and unchanged bilateral lower extremity edema. GI: Denies abdominal pain. She has had diarrhea for at least a few days. She denies vomiting or nausea. Denies hematochezia or melena. Chronic incontin ence of stool. : Chronic urinary incontinence. Musculoskeletal: Denies back pain or joint pain. [] Integument: Denies rash. [] Neurologic: Denies headache, dizziness, syncope. She has diffuse, generalized weakness, unchanged from baseline. Psychiatric: Denies depression or anxiety. [] Heart Score: C/O Chest Pain: No Risk Factors: Risk Factors: DM, Current or recent (<one month) smoker, HTN, HLP, family history of CAD, obesity. Risk Scores: Score 0 - 3: 2.5% MACE over next 6 weeks - Discharge Home Score 4 - 6: 20.3% MACE over next 6 weeks - Admit for Clinical Observation Score 7 - 10: 72.7% MACE over next 6 weeks - Early Invasive Strategies Allergies: Allergies: Allergies Coded Allergies Type Severity Reaction Last Updated Verified Penicillins Allergy Intermediate 04/09/19 Yes iodine Allergy Intermediate 09/16/14 Yes latex Allergy Intermediate Rash 02/20/14 Yes Physical Exam: PE: Constitutional: Well-developed, well-nourished, obese female, appears stated age, chronically ill-appearing. Nontoxic. HENT: Normocephalic, atraumatic, bilateral external ears normal, oropharynx moist Eyes: PERRL, EOMI, conjunctiva normal, no discharge. [] Neck: Normal range of motion, no tenderness, supple, no stridor. [] Cardiovascular:Heart rate regular rhythm, +2 dorsalis pedis and radial pulses bilaterally. Lungs & Thorax: Bilateral breath sounds clear to auscultation [] Abdomen: Is obese, soft, nondistended, nontender to palpation. She has moderate skin maceration and mild erythema under her pannus, worse on the left than the right. Skin: Is warm, dry, relatively unkempt, with dried stool on her legs and feet. She has superficial maceration and skin breakdown under her left and mid pannus. No large open wounds. No sacral or buttocks decubitus ulcers. There is mild to moderate skin irritation erythema of her buttocks and inguinal and vulvar areas. Back: No deformity, no midline tenderness or step-offs. Extremities: No limb deformity. Pelvis is stable. No calf tenderness. Bilateral, symmetric 1+ nonpitting lower extremity edema noted. Neurologic: Alert and oriented X 3, she has diffuse, generalized and symmetric motor weakness. Sensation appears to be grossly intact. No facial asymmetry. Speech is clear and fluent. Psychologic: Somewhat flat affect, but she is pleasant cooperative. Current Patient Data: Labs: Laboratory Tests Test 01/18/21 08:10 White Blood Count 9.7 x10^3/uL (4.0-11.0) Red Blood Count 4.71 x10^6/uL (3.50-5.40) Hemoglobin 13.7 g/dL (12.0-15.5) Hematocrit 40.3 % (36.0-47.0) Mean Corpuscular Volume 86 fL (79-100) Mean Corpuscular Hemoglobin 29 pg (25-35) Mean Corpuscular Hemoglobin Concent 34 g/dL (31-37) Red Cell Distribution Width 14.8 % (11.5-14.5) H Platelet Count 240 x10^3/uL (140-400) Neutrophils (%) (Auto) 77 % (31-73) H Lymphocytes (%) (Auto) 14 % (24-48) L Monocytes (%) (Auto) 7 % (0-9) Eosinophils (%) (Auto) 1 % (0-3) Basophils (%) (Auto) 1 % (0-3) Neutrophils # (Auto) 7.4 x10^3/uL (1.8-7.7) Lymphocytes # (Auto) 1.4 x10^3/uL (1.0-4.8) Monocytes # (Auto) 0.7 x10^3/uL (0.0-1.1) Eosinophils # (Auto) 0.1 x10^3/uL (0.0-0.7) Basophils # (Auto) 0.1 x10^3/uL (0.0-0.2) Sodium Level 141 mmol/L (136-145) Potassium Level 3.0 mmol/L (3.5-5.1) L Chloride Level 103 mmol/L (98-107) Carbon Dioxide Level 28 mmol/L (21-32) Anion Gap 10 (6-14) Blood Urea Nitrogen 45 mg/dL (7-20) H Creatinine 2.2 mg/dL (0.6-1.0) H Estimated GFR (Cockcroft-Gault) 26.5 BUN/Creatinine Ratio 20 (6-20) Glucose Level 168 mg/dL (70-99) H Lactic Acid Level 1.1 mmol/L (0.4-2.0) Calcium Level 9.7 mg/dL (8.5-10.1) Phosphorus Level 4.2 mg/dL (2.6-4.7) Magnesium Level 2.2 mg/dL (1.8-2.4) Total Bilirubin 0.5 mg/dL (0.2-1.0) Aspartate Amino Transferase (AST) 38 U/L (15-37) H Alanine Aminotransferase (ALT) 48 U/L (14-59) Alkaline Phosphatase 80 U/L (46-116) Creatine Kinase 169 U/L (26-192) Total Protein 7.4 g/dL (6.4-8.2) Albumin 2.9 g/dL (3.4-5.0) L Albumin/Globulin Ratio 0.6 (1.0-1.7) L Laboratory Tests 01/18/21 08:10 Laboratory Tests 01/18/21 08:10 EKG: EKG: EKG is interpreted at 0803 Rhythm is sinus Rate is 63 bpm [place] is left No STEMI Baseline artifact noted Radiology/Procedures: Radiology/Procedures: [] Course & Med Decision Making: Course & Med Decision Making Pertinent Labs and Imaging studies reviewed. (See chart for details) The patient is given IV fluids. Cath UA demonstrates pyuria and bacteria. She is empirically given IV Rocephin for treatment of UTI. P.o. potassium replacement is given. Blood cultures are obtained and are pending. Urine culture is pending. The patient is resting comfortably, denies any current or active pain or discomfort. I have discussed the findings, differential diagnosis and plan of care with her. I recommend admission. She has sig nificant self-care deficits, and requires admission, addiction social worker consult and likely placement. She is amenable to this. She is accepted for admission by Dr. Martinez. Andrew Disclaimer: Andrew Disclaimer: This electronic medical record was generated, in whole or in part, using a voice recognition dictation system. Departure Departure Impression: Primary Impression: Generalized weakness Additional Impressions: Urinary tract infection Hypokalemia Diarrhea Unable to care for self Disposition: ADMITTED INPATIENT Admitting Physician: HIMS Condition: STABLE Referrals: PATRICIA DOLL MD (PCP) NATHANIEL PRAKASH DO Jan 18, 2021 09:12
[2021-01-18 09:23] LABS: BACTERIA,URINE MANY /HPF (0-FEW)
[2021-01-18] MEDS ORDERED: POTASSIUM CHLORIDE 20 MEQ TABLET.ER. PO ONE (09:30)
[2021-01-18] MEDS ORDERED: cefTRIAXone IV Push 1 GM VIAL. IVP ONE (09:30)
[2021-01-18] MEDS ORDERED: IV NORMAL SALINE 1000ML BAG 1,000 ML IV ONE (10:00)
[2021-01-18] MEDS ORDERED: ONDANSETRON PF 4 MG/2 ML VIAL. IVP PRN (10:00)
[2021-01-18 11:10] VITALS: BP 210/88
--- NOTE | 2021-01-18 11:45 | NUR ---
Pt. arrived to ER yesterday from fall at home. Patient . arrived to floor with 20 G IV NS continuous flow. Pt. Alert and oriented x4. Oxygen room air at 94%. Patient Blood pressure elevated to 203/102 Dr. Martinez notified gave BP med via IV push. Patient has no complaints of pain or discomfort. Skin is dry, Incontinence of bowel and bladder. purewick in place. sacral area red with 3 cm in length. redness to abdominal folds and groin area.
--- NOTE | 2021-01-18 13:56 | HP ---
DATE OF SERVICE: 01/18/2021 ADMIT DATE: 01/18/2021 CHIEF COMPLAINT: Weakness, inability to take care of herself. HISTORY OF PRESENT ILLNESS: The patient is a pleasant 70-year-old female who is overweight and her is just not able to take care of her anymore. She has been unable to walk or take care of herself. She is very weak. She came in with stool all over herself. They had to call 911 to have a lift assist bring her in. I discussed the case with ER physician. We are going to admit the patient and get clinical social work aide involved to consider long-term care. PAST MEDICAL HISTORY: Stroke, diabetes, hypertension, hyperlipidemia, myocardial infarction, overweight, gout, hysterectomy, hypothyroidism, thyroid surgery, leg stents, previous tobacco abuse. ALLERGIES: PENICILLIN, IODINE, LATEX. FAMILY HISTORY: Hypertension. SOCIAL HISTORY: She quit smoking. No drink or drugs. She is , lives with her , but apparently he can not take care of her anymore. MEDICATIONS: Reviewed, please refer to the MRAD. REVIEW OF SYSTEMS: GENERAL: No history of weight change, weakness or fevers. SKIN: No bruising, hair changes or rashes. EYES: No blurred, double or loss of vision. NOSE AND THROAT: No history of nosebleeds, hoarseness or sore throat. HEART: No history of palpitations, chest pain or shortness of breath on exertion. LUNGS: Denies cough, hemoptysis, wheezing or shortness of breath. GASTROINTESTINAL: Denies changes in appetite, nausea, vomiting, diarrhea or constipation. GENITOURINARY: No history of frequency, urgency, hesitancy or nocturia. NEUROLOGIC: Denies history of numbness, tingling, tremor or weakness. PSYCHIATRIC: No history of panic, anxiety or depression. ENDOCRINE: No history of heat or cold intolerance, polyuria or polydipsia. EXTREMITIES: Denies muscle weakness, joint pain, pain on walking or stiffness. . PHYSICAL EXAMINATION: VITALS: Within normal limits and are stable. GENERAL: She is overweight, pleasant. HEENT: Normal cephalic atraumatic, external auditory canals are patent. EYES: Extraocular muscles are intact, pupils are equally round and reactive to light and accommodation. MUSCULOSKELETAL: Well developed, well nourished, good range of motion. ENDOCRINE: No thyromegaly was palpated. LYMPHATICS: No cervical chain or axillary nodes were noted. HEMATOPOIETIC: No bruising. NECK: Supple, no JVD, no thyromegaly was noted. LUNGS: Clear to auscultation in all lung hurtado without rhonchi or wheezing. HEART: RRR, S1, S2 present. Peripheral pulses intact, no obvious murmurs were noted. ABDOMEN: Soft, nontender. Positive bowel sounds no organomegaly, normal bowel sounds. EXTREMITIES: Without any cyanosis, clubbing, or edema. Pedal pulses intact, Homans sign is negative. NEUROLOGIC: She is extremely weak. PSYCHIATRIC: She is a little anxious. SKIN: No ulcerations or rashes, good skin turgor, no jaundice. VASCULAR: Good capillary refill, neurovascular bundle appears to be intact. LABORATORY DATA: White count 9, hemoglobin 13, platelets 240. Sodium 141, potassium 3.0, chloride 103, bicarbonate 28, BUN 45, creatinine 2.2, glucose 168. Urinalysis shows moderate amount of blood and trace leukocyte esterase, 5-10 white cells. ASSESSMENT AND PLAN: Probable early failure to thrive, inability to take care of herself, weakness, poor hygiene, urinary tract infection, azotemia, hypokalemia. The patient has been admitted. We will give her IV antibiotics, IV fluids, home meds. DVT prophylaxis. Full code. Replace her potassium. member services representative for long-term care. She has elevated blood pressure today into the 200s, we are going to start some IV Vasotec, p.r.n. Zofran. Prognosis guarded. DEEPIKA DR: Melody TID: [id number]
[2021-01-18] MEDS: ENALAPRILAT 2.5 MG/2 ML VIAL. IVP SCH ×2 (14:01→17:55)
[2021-01-18] MEDS: DOXYCYCLINE HYCLATE 100 MG in IV DEXTROSE 5% 100ML 100 ML IV SCH ×2 (14:43→20:41)
[2021-01-18 15:00] VITALS: BP 235/70
[2021-01-18] MEDS ORDERED: ATOR80TA72 PO (17:17)
[2021-01-18] MEDS ORDERED: VALS80TA3 PO (17:17)
[2021-01-18] MEDS ORDERED: FENO150C PO (17:17)
[2021-01-18] MEDS ORDERED: HYDR100T24 PO (17:17)
[2021-01-18] MEDS ORDERED: EZET10TA48 PO (17:17)
[2021-01-18] MEDS ORDERED: GABA-585 PO (18:00)
[2021-01-18] MEDS ORDERED: CHOL400C PO (18:00)
[2021-01-18] MEDS ORDERED: POTA10TA12 PO (18:00)
[2021-01-18] MEDS ORDERED: [UNRECOGNIZED DRUG - OTHER] PO (18:00)
[2021-01-18] MEDS ORDERED: TRAM50TA PO (18:00)
[2021-01-18] MEDS ORDERED: MECO10005 PO (18:00)
[2021-01-18 19:55] VITALS: BP 177/71
[2021-01-18] MEDS: ATORVASTATIN CALCIUM 40 MG TABLET. PO SCH (20:39)
[2021-01-18] MEDS: GABAPENTIN 100 MG CAPSULE. PO SCH (20:39)
[2021-01-18] MEDS: CARVEDILOL 12.5 MG TABLET. PO SCH (20:40)
[2021-01-18] MEDS: EZETIMIBE 10 MG TABLET. PO SCH (20:40)
[2021-01-18] MEDS: CILOSTAZOL 50 MG TABLET. PO SCH (21:20)
[2021-01-18] MEDS: LATANOPROST 0.005% OPHTH SOLUTION 2.5ML BOTTLE. OU SCH (21:20)
[2021-01-18 23:20] VITALS: BP 170/52
[2021-01-19] VITALS (7 sets, daily range): BP systolic 95–196; BP diastolic 45–81
[2021-01-19] MEDS: ENALAPRILAT 2.5 MG/2 ML VIAL. IVP SCH ×2 (00:42→05:32)
[2021-01-19] MEDS: LEVOTHYROXINE 25 MCG TABLET. PO SCH (05:25)
[2021-01-19] MEDS: FOLIC ACID 1 MG TABLET. PO SCH (09:46)
[2021-01-19] MEDS: GABAPENTIN 100 MG CAPSULE. PO SCH ×2 (09:46→20:47)
[2021-01-19] MEDS: CILOSTAZOL 50 MG TABLET. PO SCH ×2 (09:46→20:47)
[2021-01-19] MEDS: CLOPIDOGREL BISULFATE 75 MG TABLET PO SCH (09:46)
[2021-01-19] MEDS: ALLOPURINOL 100 MG TABLET. PO SCH (09:46)
[2021-01-19] MEDS: FENOFIBRATE,MICRONIZED 134 MG CAPSULE PO SCH (09:46)
[2021-01-19] MEDS: CETIRIZINE HCL 10 MG TABLET. PO SCH (09:46)
[2021-01-19] MEDS: CARVEDILOL 12.5 MG TABLET. PO SCH ×2 (09:47→15:08)
[2021-01-19] MEDS: DOXYCYCLINE HYCLATE 100 MG in IV DEXTROSE 5% 100ML 100 ML IV SCH (09:47)
[2021-01-19] MEDS: LOSARTAN POTASSIUM 50 MG TABLET. PO SCH (09:47)
--- NOTE | 2021-01-19 13:36 | PDOC ---
[employer] PROGRESS NOTE Date of Service DOS: DATE: 01/19/21 TIME: 13:32 Chief Complaint Chief Complaint Assessment plan Generalized weakness Failure to thrive Acute cystitis [place] due to vasomotor nephropathy Diarrhea Moderate hypokalemia Morbid obesity History of diabetes mellitus type 2 History of hypertension History of dyslipidemia History of CVA History of CAD and MS History of gout History of peripheral vascular disease Pending PT OT evaluation Continue empiric IV antibiotics Pending urine culture History of Present Illness History of Present Illness 70-year-old female who is overweight and her is just not able to take care of her anymore. She has been unable to walk or take care of herself. She is very weak. She came in with stool all over herself. They had to call 911 to have a lift assist bring her in. I discussed the case with ER physician. We are going to admit the patient and get social work specialist involved to consider long-term care. 01/19/2021 No acute events overnight. Patient seen examined bedside. No concerns nursing this time. PT OT evaluation pending. Patient's chart, labs, images were reviewed and discussed with RN Vitals/I&O Vitals/I&O: Vital Signs Date Time Temp Pulse Resp B/P (MAP) Pulse Ox O2 Delivery O2 Flow Rate FiO2 01/19/21 11:00 97.6 58 20 195/81 (119) 96 Room Air 97.6 I & O 01/18/21 01/18/21 01/19/21 15:00 23:00 07:00 Intake Total 180 ml 120 ml Output Total 900 ml 250 ml Balance -720 ml -130 ml Physical Exam General: Alert Heart: Regular rate Lungs: Clear Abdomen: Normal bowel sounds Extremities: No clubbing Skin: No rashes, No breakdown Labs Labs: Laboratory Tests Test 01/18/21 17:09 01/18/21 21:11 01/19/21 08:25 01/19/21 11:43 Glucose (Fingerstick) 171 mg/dL (70-99) 167 mg/dL (70-99) 157 mg/dL (70-99) 215 mg/dL (70-99) Assessment and Plan Assessmemt and Plan Problems Medical Problems: (1) Diarrhea Status: Acute (2) Generalized weakness Status: Acute (3) Hypokalemia Status: Acute (4) Unable to care for self Status: Acute (5) Urinary tract infection Status: Acute Comment Review of Relevant I have reviewed the following items hawk (where applicable) has been applied. Medications: Current Medications Medications (Trade) Dose Ordered Sig/Brittany Route PRN Reason Start Time Stop Time Status Last Admin Dose Admin Doxycycline Hyclate 100 mg/ Dextrose 100 ml @ 50 mls/hr Q12HR IV 01/18/21 14:00 01/19/21 09:47 Allopurinol (Zyloprim) 100 mg DAILY PO 01/19/21 09:00 01/19/21 09:46 Clopidogrel Bisulfate (Plavix) 75 mg DAILY PO 01/19/21 09:00 01/19/21 09:46 EZETIMIBE (Zetia) 10 mg QHS PO 01/18/21 21:00 01/18/21 20:40 Folic Acid (Folic Acid) 1 mg DAILY PO 01/19/21 09:00 01/19/21 09:46 Gabapentin (Neurontin) 100 mg BID PO 01/18/21 21:00 01/19/21 09:46 Latanoprost (Xalatan) 1 drop QHS OU 01/18/21 21:00 01/18/21 21:20 Levothyroxine Sodium (Synthroid) 25 mcg DAILY06 PO 01/19/21 06:00 01/19/21 05:25 Atorvastatin Calcium (Lipitor) 80 mg QHS PO 01/18/21 21:00 01/18/21 20:39 Carvedilol (Coreg) 25 mg BIDWMEALS PO 01/18/21 19:30 01/19/21 09:47 Cilostazol (Pletal) 100 mg BID PO 01/18/21 21:00 01/19/21 09:46 Fenofibrate (Lofibra) 134 mg DAILY PO 01/19/21 09:00 01/19/21 09:46 Losartan Potassium (Cozaar) 100 mg DAILY PO 01/19/21 09:00 01/19/21 09:47 Cetirizine HCl (ZyrTEC) 10 mg DAILY PO 01/19/21 09:00 01/19/21 09:46 Justifications for Admission Other Justification ANA LUISA BRUCE MD Jan 19, 2021 13:36
--- NOTE | 2021-01-19 14:26 | NUR ---
Wound Care WC consult for buttock wound. pt does not have any open areas at this time. Calazime cream applied and pt turned to left side. Family at bedside. WC will sign off at this time. Please reconsult if new wounds develop
[2021-01-19] MEDS: cefTRIAXone IV Push 2 GM VIAL. IVP SCH (15:09)
[2021-01-19] MEDS: ATORVASTATIN CALCIUM 40 MG TABLET. PO SCH (20:48)
[2021-01-19] MEDS: EZETIMIBE 10 MG TABLET. PO SCH (20:48)
[2021-01-19] MEDS: LACTOBACILLUS RHAMNOSUS GG 1 CAPSULE. PO SCH (20:48)
[2021-01-19] MEDS: LATANOPROST 0.005% OPHTH SOLUTION 2.5ML BOTTLE. OU SCH (21:00)
[2021-01-20 02:56] VITALS: BP 128/78
[2021-01-20] MEDS: LEVOTHYROXINE 25 MCG TABLET. PO SCH (06:19)
[2021-01-20 07:00] VITALS: BP 229/67
[2021-01-20] MEDS: FENOFIBRATE,MICRONIZED 134 MG CAPSULE PO SCH (08:15)
[2021-01-20] MEDS: FOLIC ACID 1 MG TABLET. PO SCH (08:16)
[2021-01-20] MEDS: LACTOBACILLUS RHAMNOSUS GG 1 CAPSULE. PO SCH ×2 (08:16→21:02)
[2021-01-20] MEDS: LOSARTAN POTASSIUM 50 MG TABLET. PO SCH (08:16)
[2021-01-20] MEDS: CETIRIZINE HCL 10 MG TABLET. PO SCH (08:16)
[2021-01-20] MEDS: CARVEDILOL 12.5 MG TABLET. PO SCH ×2 (08:17→17:32)
[2021-01-20] MEDS: GABAPENTIN 100 MG CAPSULE. PO SCH ×2 (08:17→21:02)
[2021-01-20] MEDS: MULTIVITAMIN with MINERAL TABLET. PO SCH (08:17)
[2021-01-20] MEDS: ALLOPURINOL 100 MG TABLET. PO SCH (08:17)
[2021-01-20] MEDS: CILOSTAZOL 50 MG TABLET. PO SCH ×2 (08:19→21:02)
[2021-01-20] MEDS: CLOPIDOGREL BISULFATE 75 MG TABLET PO SCH (08:19)
[2021-01-20] MEDS: ASCORBIC ACID 500 MG TABLET PO SCH (08:19)
[2021-01-20 11:00] VITALS: BP 170/62
--- NOTE | 2021-01-20 11:06 | PDOC ---
[employer] PROGRESS NOTE Date of Service DOS: DATE: 01/20/21 TIME: 11:04 Chief Complaint Chief Complaint Assessment plan Generalized weakness Failure to thrive Acute cystitis [place] due to vasomotor nephropathy Diarrhea Moderate hypokalemia Morbid obesity History of diabetes mellitus type 2 History of hypertension History of dyslipidemia History of CVA History of CAD and [place] History of gout History of peripheral vascular disease Pending PT OT evaluation Continue empiric IV antibiotics Pending urine culture History of Present Illness History of Present Illness 70-year-old female who is overweight and her is just not able to take care of her anymore. She has been unable to walk or take care of herself. She is very weak. She came in with stool all over herself. They had to call 911 to have a lift assist bring her in. I discussed the case with ER physician. We are going to admit the patient and get social studies department chair involved to consider long-term care. 01/19/2021 No acute events overnight. Patient seen examined bedside. No concerns nursing this time. PT OT evaluation pending. Patient's chart, labs, images were reviewed and discussed with RN 01/20 Patient evaluated examined at bedside. No major events overnight. Patient definitely needs placement. Continue with Rocephin for UTI. Can change to oral on discharge. She is discharged ready. Okay to discharge once placement found. Patient's chart, labs, images were reviewed and discussed with RN Vitals/I&O Vitals/I&O: Vital Signs Date Time Temp Pulse Resp B/P (MAP) Pulse Ox O2 Delivery O2 Flow Rate FiO2 01/20/21 08:49 Room Air 01/20/21 08:17 64 229/67 01/20/21 07:00 98.8 18 96 98.8 I & O 01/19/21 01/19/21 01/20/21 15:00 23:00 07:00 Intake Total 480 ml Output Total 400 ml 600 ml Balance -400 ml -120 ml Physical Exam General: Alert Heart: Regular rate Lungs: Clear Abdomen: Normal bowel sounds Extremities: No clubbing Skin: No rashes, No breakdown Labs Labs: Laboratory Tests Test 01/19/21 11:43 01/19/21 16:57 01/19/21 21:15 01/20/21 07:26 Glucose (Fingerstick) 215 mg/dL (70-99) 178 mg/dL (70-99) 230 mg/dL (70-99) 179 mg/dL (70-99) Assessment and Plan Assessmemt and Plan Problems Medical Problems: (1) Diarrhea Status: Acute (2) Generalized weakness Status: Acute (3) Hypokalemia Status: Acute (4) Unable to care for self Status: Acute (5) Urinary tract infection Status: Acute Comment Review of Relevant I have reviewed the following items hawk (where applicable) has been applied. Medications: Current Medications Medications (Trade) Dose Ordered Sig/Brittany Route PRN Reason Start Time Stop Time Status Last Admin Dose Admin Multivitamins (Thera M Plus) 1 tab DAILY PO 01/20/21 09:00 01/20/21 08:17 Ascorbic Acid (Vitamin C) 500 mg DAILY PO 01/20/21 09:00 01/20/21 08:19 Ceftriaxone Sodium (Rocephin) 2 gm Q24H IVP 01/19/21 15:00 01/19/21 15:09 Lactobacillus Rhamnosus (Culturelle) 1 cap BID PO 01/19/21 21:00 01/20/21 08:16 Justifications for Admission Other Justification OLE JUARES MD Jan 20, 2021 11:06
[2021-01-20 15:00] VITALS: BP 144/51
[2021-01-20] MEDS: cefTRIAXone IV Push 2 GM VIAL. IVP SCH (15:23)
--- NOTE | 2021-01-20 16:08 | NUR ---
SW following. Discussed with RN, therapy recommending SNF. SW met with pt, pt agreeable but would like SW to speak with her first. SW left voicemail for pt's , Vel - awaiting return call. SW will continue to follow.
[2021-01-20 19:15] VITALS: BP 112/53
[2021-01-20] MEDS: ATORVASTATIN CALCIUM 40 MG TABLET. PO SCH (21:02)
[2021-01-20] MEDS: EZETIMIBE 10 MG TABLET. PO SCH (21:02)
[2021-01-20] MEDS: LATANOPROST 0.005% OPHTH SOLUTION 2.5ML BOTTLE. OU SCH (21:05)
[2021-01-20 23:09] VITALS: BP 122/54
[2021-01-21 03:12] VITALS: BP 210/79
[2021-01-21] MEDS: LEVOTHYROXINE 25 MCG TABLET. PO SCH (05:58)
[2021-01-21 07:00] VITALS: BP 189/70
[2021-01-21] MEDS: traMADol 50 MG TABLET PO PRN ×2 (07:26→15:39)
[2021-01-21] MEDS: LACTOBACILLUS RHAMNOSUS GG 1 CAPSULE. PO SCH ×2 (08:28→21:01)
[2021-01-21] MEDS: ALLOPURINOL 100 MG TABLET. PO SCH (08:28)
[2021-01-21] MEDS: CETIRIZINE HCL 10 MG TABLET. PO SCH (08:28)
[2021-01-21] MEDS: FOLIC ACID 1 MG TABLET. PO SCH (08:28)
[2021-01-21] MEDS: FENOFIBRATE,MICRONIZED 134 MG CAPSULE PO SCH (08:28)
[2021-01-21] MEDS: CILOSTAZOL 50 MG TABLET. PO SCH ×2 (08:28→21:01)
[2021-01-21] MEDS: LOSARTAN POTASSIUM 50 MG TABLET. PO SCH (08:29)
[2021-01-21] MEDS: MULTIVITAMIN with MINERAL TABLET. PO SCH (08:29)
[2021-01-21] MEDS: CARVEDILOL 12.5 MG TABLET. PO SCH ×2 (08:29→16:38)
[2021-01-21] MEDS: CLOPIDOGREL BISULFATE 75 MG TABLET PO SCH (08:29)
[2021-01-21] MEDS: ASCORBIC ACID 500 MG TABLET PO SCH (08:29)
[2021-01-21] MEDS: GABAPENTIN 100 MG CAPSULE. PO SCH ×2 (08:30→21:01)
--- NOTE | 2021-01-21 10:23 | NUR ---
SW following. Discussed with RN, pt from home with . SW spoke with pt's , Jose Carlos - he is agreeable to SNF placement and would like [facility]. SW phoned and faxed referral to [facility], awaiting acceptance decision and and COVID PCR result. MIMI will continue to follow.
[2021-01-21 11:00] VITALS: BP 142/53
--- NOTE | 2021-01-21 14:19 | PDOC ---
[employer] PROGRESS NOTE Date of Service DOS: DATE: 01/21/21 TIME: 14:16 Chief Complaint Chief Complaint Assessment plan Generalized weakness Failure to thrive Acute cystitis [place] due to vasomotor nephropathy Diarrhea Moderate hypokalemia Morbid obesity History of diabetes mellitus type 2 History of hypertension History of dyslipidemia History of CVA History of CAD and [place] History of gout History of peripheral vascular disease Pending PT OT evaluation Continue empiric IV antibiotics Pending urine culture History of Present Illness History of Present Illness 70-year-old female who is overweight and her is just not able to take care of her anymore. She has been unable to walk or take care of herself. She is very weak. She came in with stool all over herself. They had to call 911 to have a lift assist bring her in. I discussed the case with ER physician. We are going to admit the patient and get social security specialist involved to consider long-term care. 01/19/2021 No acute events overnight. Patient seen examined bedside. No concerns nursing this time. PT OT evaluation pending. Patient's chart, labs, images were reviewed and discussed with RN 01/20 Patient evaluated examined at bedside. No major events overnight. Patient definitely needs placement. Continue with Rocephin for UTI. Can change to oral on discharge. She is discharged ready. Okay to discharge once placement found. Patient's chart, labs, images were reviewed and discussed with RN 01/21/2021 No acute events overnight. Patient seen and examined bedside. Pending CBC and BMP before discharge. Plan is to go to SNF. Discharge planning arranging. Patient's chart, labs, images were reviewed and discussed with RN Vitals/I&O Vitals/I&O: Vital Signs Date Time Temp Pulse Resp B/P (MAP) Pulse Ox O2 Delivery O2 Flow Rate FiO2 01/21/21 11:00 97.5 68 18 142/53 (82) 95 Room Air 97.5 I & O 01/20/21 01/20/21 01/21/21 15:00 23:00 07:00 Intake Total 720 ml Output Total 100 ml 250 ml 1150 ml Balance -100 ml -250 ml -430 ml Physical Exam General: Alert Heart: Regular rate Lungs: Clear Abdomen: Normal bowel sounds Extremities: No clubbing Skin: No rashes, No breakdown Labs Labs: Laboratory Tests Test 01/20/21 16:57 01/20/21 21:01 01/21/21 07:39 01/21/21 11:46 Glucose (Fingerstick) 166 mg/dL (70-99) 192 mg/dL (70-99) 149 mg/dL (70-99) 226 mg/dL (70-99) Assessment and Plan Assessmemt and Plan Problems Medical Problems: (1) Diarrhea Status: Acute (2) Generalized weakness Status: Acute (3) Hypokalemia Status: Acute (4) Unable to care for self Status: Acute (5) Urinary tract infection Status: Acute Comment Review of Relevant I have reviewed the following items hawk (where applicable) has been applied. Justifications for Admission Other Justification ANA LUISA BRUCE MD Jan 21, 2021 14:19
[2021-01-21 15:00] VITALS: BP 173/65
[2021-01-21] MEDS: cefTRIAXone IV Push 2 GM VIAL. IVP SCH (15:38)
--- NOTE | 2021-01-21 15:51 | NUR ---
While working with PT, pt c/o bilat LE calf pain. Dr. Kash calderon.
[2021-01-21] MEDS: HEPARIN for SUB-Q USE 5,000 UNIT/ML VIAL. SQ SCH (16:41)
[2021-01-21 19:00] VITALS: BP 140/68
--- NOTE | 2021-01-21 20:47 | RAD ---
Bilateral lower extremity venous duplex Doppler ultrasound HISTORY: Leg pain, calf pain. FINDINGS: No DVT evident by grayscale sonography with compressibility, patent color Doppler blood kindra w and augmentation of flow the common femoral veins, profunda femoral veins, superficial femoral vein s and popliteal veins. No DVT evident with patent color Doppler blood flow the posterior tibial peron eal veins in the calf. IMPRESSION: Negative bilateral legs for DVT. Electronically signed by: Nasir Shaffer MD (01/21/2021 8:45 PM) [facility]
[2021-01-21] MEDS: LATANOPROST 0.005% OPHTH SOLUTION 2.5ML BOTTLE. OU SCH (21:01)
[2021-01-21] MEDS: ATORVASTATIN CALCIUM 40 MG TABLET. PO SCH (21:01)
[2021-01-21] MEDS: EZETIMIBE 10 MG TABLET. PO SCH (21:01)
[2021-01-21 23:23] VITALS: BP_SYST 108; BP_SYST 133; BP_DIAS 61; BP_DIAS 67
[2021-01-22 03:32] VITALS: BP 151/75
[2021-01-22 05:25] LABS: BASO % 1 % (0-3); EOS # 0.3 x10^3/uL (0.0-0.7); EOS % 4 % (0-3); HEMATOCRIT 34.9 % (36.0-47.0); HEMOGLOBIN 11.6 g/dL (12.0-15.5); LYMPH # 1.8 x10^3/uL (1.0-4.8); LYMPH % 28 % (24-48); MEAN CORPUSCULAR HEMOGLOBIN 29 pg (25-35); MEAN CORPUSCULAR HGB CONC 33 g/dL (31-37); MEAN CORPUSCULAR VOLUME 87 fL (79-100); MONO # 0.5 x10^3/uL (0.0-1.1); MONO % 8 % (0-9); NEUT % 60 % (31-73); PLATELET COUNT 179 x10^3/uL (140-400); RED BLOOD COUNT 4.03 x10^6/uL (3.50-5.40); RED CELL DISTRIBUTION WIDTH 15.2 % (11.5-14.5); WHITE BLOOD COUNT 6.6 x10^3/uL (4.0-11.0)
[2021-01-22 05:32] LABS: CALCIUM 8.5 mg/dL (8.5-10.1); CREATININE 2.2 mg/dL (0.6-1.0); GFR 26.5; MAGNESIUM 1.8 mg/dL (1.8-2.4); POTASSIUM 3.1 mmol/L (3.5-5.1)
[2021-01-22] MEDS: LEVOTHYROXINE 25 MCG TABLET. PO SCH (06:09)
[2021-01-22 07:00] VITALS: BP 232/78
[2021-01-22] MEDS: FOLIC ACID 1 MG TABLET. PO SCH (07:37)
[2021-01-22] MEDS: FENOFIBRATE,MICRONIZED 134 MG CAPSULE PO SCH (07:37)
[2021-01-22] MEDS: LACTOBACILLUS RHAMNOSUS GG 1 CAPSULE. PO SCH (07:37)
[2021-01-22] MEDS: ASCORBIC ACID 500 MG TABLET PO SCH (07:37)
[2021-01-22] MEDS: CETIRIZINE HCL 10 MG TABLET. PO SCH (07:38)
[2021-01-22] MEDS: CLOPIDOGREL BISULFATE 75 MG TABLET PO SCH (07:38)
[2021-01-22] MEDS: CARVEDILOL 12.5 MG TABLET. PO SCH (07:38)
[2021-01-22] MEDS: GABAPENTIN 100 MG CAPSULE. PO SCH (07:38)
[2021-01-22] MEDS: LOSARTAN POTASSIUM 50 MG TABLET. PO SCH (07:39)
[2021-01-22] MEDS: MULTIVITAMIN with MINERAL TABLET. PO SCH (07:39)
[2021-01-22] MEDS: CILOSTAZOL 50 MG TABLET. PO SCH (07:39)
[2021-01-22] MEDS: ALLOPURINOL 100 MG TABLET. PO SCH (07:39)
[2021-01-22] MEDS: HEPARIN for SUB-Q USE 5,000 UNIT/ML VIAL. SQ SCH (07:48)
[2021-01-22] MEDS ORDERED: CEFD300C PO (08:36)
--- NOTE | 2021-01-22 08:41 | SNU/HH DC ---
DISCHARGE ORDERS DISCHARGE INFORMATION: DISCHARGE DATE: Jan 22, 2021 FINAL DIAGNOSIS Problems Medical Problems: (1) Diarrhea Status: Acute (2) Generalized weakness Status: Acute (3) Hypokalemia Status: Acute (4) Unable to care for self Status: Acute (5) Urinary tract infection Status: Acute CONDITION ON DISCHARGE: Stable CODE STATUS: Code Status: Full GROUP HOME: SNF STAY <30 DAYS: Yes POST DISCHARGE ORDERS: ACTIVITY ORDERS: Activity as tolerated FOLLOW-UP: PHYSICIAN FOLLOW-UP: PCP within 2 weeks of discharge LAB ORDERS FOR FOLLOW-UP: CBC, CMP TREATMENT/EQUIPMENT ORDERS: Physical Therapy For: Evalulation/Treatment Occupational Therapy For: Evaluation/Treatment DISCHARGE MEDICATIONS: Home Meds Active Scripts Cefdinir (CEFDINIR) 300 Mg Capsule, 1 CAP PO BID for UTI for 1 Day, #2 CAP Prov:ANA LUISA BRUCE MD 01/22/21 Reported Medications Potassium Chloride (KLOR-CON 10) 10 Meq Tablet.er, 1 TAB PO DAILY for SUPPLEMENT for 30 Days, #30 TAB 0 Refills 01/18/21 Mecobalamin (B12 Active) 1,000 Mcg Tab.chew, 100 MCG PO DAILY for UNK, TAB.CHEW 01/18/21 Cholecalciferol (Vitamin D3) (Vitamin D3) 10 Mcg Capsule, 10 MCG PO DAILY for UNK, CAP 01/18/21 Tramadol Hcl (TRAMADOL HCL) 50 Mg Tablet, 50 MG PO Q6HRS PRN for PAIN, TAB 01/18/21 Gabapentin (GABAPENTIN ) 100 Mg Capsule, 100 MG PO BID for NEUROGENIC PAIN, CAP 01/18/21 [Lower Bowel Stim] No Conflict Check, 2 TAB PO DAILY for UNK 01/18/21 Atorvastatin Calcium (Atorvastatin Calcium) 80 Mg Tablet, 80 MG PO QHS for FOR HIGH CHOLESTEROL, TAB 01/18/21 Fenofibrate (LIPOFEN) 150 Mg Capsule, 1 CAP PO DAILY for UNK for 30 Days, #30 CAP 0 Refills 01/18/21 Ezetimibe (Ezetimibe) 10 Mg Tablet, 10 MG PO QHS for UNK, TAB 01/18/21 Hydralazine Hcl (HYDRALAZINE HCL) 100 Mg Tablet, 1 TAB PO TID for UNK, #90 TAB 3 Refills 01/18/21 Valsartan (DIOVAN) 80 Mg Tablet, 80 MG PO BID for UNK, TAB 01/18/21 Latanoprost (LATANOPROST) 2.5 Ml Drops, 1 DROP OP DAILY for 30 Days 04/10/19 Levothyroxine Sodium (LEVOTHYROXINE SODIUM) 25 Mcg Tablet, 25 MCG PO DAILY for hypothyroidism for 30 Days, #30 04/10/19 Calcium Carbonate (CALCIUM) 600 Mg Tablet, 600 MG PO HS 02/20/14 Magnesium Oxide (MAGNESIUM OXIDE) 400 Mg Tablet, 2 TAB PO BID, #30 TAB 5 Refills 02/20/14 [place]-3 Fatty Acids (FISH OIL) 500 Mg Capsule.dr, 2000 MG PO BID 02/20/14 Albuterol Sulfate (VENTOLIN HFA INHALER) 18 Gm Hfa.aer.ad, 2 PUFF IH PRN Q4- 6HRS, #1 INHALER 02/20/14 Niacin (NIASPAN) 1,000 Mg Tab.er.24h, 1 TAB PO QHS, #30 TAB 5 Refills 02/20/14 Clopidogrel Bisulfate (CLOPIDOGREL) 75 Mg Tablet, 1 TAB PO DAILY, #90 TAB 1 Refill 02/20/14 Allopurinol (ALLOPURINOL) 100 Mg Tablet, 1 TAB PO DAILY, #30 TAB 5 Refills 02/20/14 Loratadine (LORATADINE) 10 Mg Tablet, 1 TAB PO DAILY, #30 TAB 5 Refills 02/20/14 Folic Acid (FOLIC ACID) 1 Mg Tablet, 1 TAB PO DAILY, #90 TAB 1 Refill 02/20/14 Cilostazol (CILOSTAZOL) 100 Mg Tablet, 1 TAB PO BID, #60 TAB 5 Refills 02/20/14 Carvedilol (CARVEDILOL) 25 Mg Tablet, 1 TAB PO BID, #180 TAB 1 Refill 02/20/14 Discontinued Reported Medications Insulin Glargine,Hum.rec.anlog (LANTUS SOLOSTAR) 100 Unit/1 Ml Insuln.pen, 60 UNIT SQ QHS for UNK, SYR 02/20/14 Insulin Aspart (NOVOLOG) 100 Unit/1 Ml Cartridge, 20 UNIT SQ TIDAC for UNK, EACH 02/20/14 ANA LUISA BRUCE MD Jan 22, 2021 08:41
[2021-01-22] MEDS ORDERED: POTASSIUM CHLORIDE 20 MEQ TABLET.ER. PO ONE (08:45)
[2021-01-22 11:00] VITALS: BP 151/64
[2021-01-22 15:00] VITALS: BP 170/61
--- NOTE | 2021-01-22 16:55 | NUR ---
Discharge Note: AMIRA MOTA [address] [place] [address] Discharge instructions and discharge home medications reviewed with Patient and a copy given. All questions have been answered and understanding verbalized. The following instructions and handouts were given: Diet, activity, medication list and follow up instructions provided to [facility]. Report called to patient's nurse, Teodora. Discontinued lines and drains: Peripheral IV discontinued and catheter intact. [facility]
--- NOTE | 2021-01-24 21:09 | PDOC3 ---
[facility]-Discharge Summary Date of Admission: Date of Admission: Jan 18, 2021 Date of Discharge: Date of Discharge: Jan 22, 2021 Discharge Diagnosis: Discharge Diagnosis: Generalized weakness Failure to thrive Acute cystitis AUSTIN due to vasomotor nephropathy Diarrhea Moderate hypokalemia Morbid obesity History of diabetes mellitus type 2 History of hypertension History of dyslipidemia History of CVA History of CAD and CA History of gout History of peripheral vascular disease Hospital Course: Hospital Course: 70-year-old female who is overweight and her is just not able to take care of her anymore. She has been unable to walk or take care of herself. She is very weak. She came in with stool all over herself. They had to call 911 to have a lift assist bring her in. I discussed the case with ER physician. We are going to admit the patient and get manager social media involved to consider long-term care. 01/19/2021 No acute events overnight. Patient seen examined bedside. No concerns nursing this time. PT OT evaluation pending. Patient's chart, labs, images were reviewed and discussed with RN 01/20 Patient evaluated examined at bedside. No major events overnight. Patient definitely needs placement. Continue with Rocephin for UTI. Can change to oral on discharge. She is discharged ready. Okay to discharge once placement found. Patient's chart, labs, images were reviewed and discussed with RN 01/21/2021 No acute events overnight. Patient seen and examined bedside. Pending CBC and BMP before discharge. Plan is to go to SNF. Discharge planning arranging. Patient's chart, labs, images were reviewed and discussed with RN Treated for her UTI, Urine Cx returned sensitive to Cephalosporins. Transitioned to PO Abx before DC. Rest of hospital course was uneventful. Disposition: Disposition/Orders: D/C to Home w/ HH Activity: Activity: Resume previous activity Diet: Diet: Cardiac Medications: Home Meds Active Scripts Cefdinir (CEFDINIR) 300 Mg Capsule, 1 CAP PO BID for UTI for 1 Day, #2 CAP Prov:ANA LUISA BRUCE MD 01/22/21 Reported Medications Potassium Chloride (KLOR-CON 10) 10 Meq Tablet.er, 1 TAB PO DAILY for SUPPLEMENT for 30 Days, #30 TAB 0 Refills 01/18/21 Mecobalamin (B12 Active) 1,000 Mcg Tab.chew, 100 MCG PO DAILY for UNK, TAB.CHEW 01/18/21 Cholecalciferol (Vitamin D3) (Vitamin D3) 10 Mcg Capsule, 10 MCG PO DAILY for UNK, CAP 01/18/21 Tramadol Hcl (TRAMADOL HCL) 50 Mg Tablet, 50 MG PO Q6HRS PRN for PAIN, TAB 01/18/21 Gabapentin (GABAPENTIN ) 100 Mg Capsule, 100 MG PO BID for NEUROGENIC PAIN, CAP 01/18/21 [Lower Bowel Stim] No Conflict Check, 2 TAB PO DAILY for UNK 01/18/21 Atorvastatin Calcium (Atorvastatin Calcium) 80 Mg Tablet, 80 MG PO QHS for FOR HIGH CHOLESTEROL, TAB 01/18/21 Fenofibrate (LIPOFEN) 150 Mg Capsule, 1 CAP PO DAILY for UNK for 30 Days, #30 CAP 0 Refills 01/18/21 Ezetimibe (Ezetimibe) 10 Mg Tablet, 10 MG PO QHS for UNK, TAB 01/18/21 Hydralazine Hcl (HYDRALAZINE HCL) 100 Mg Tablet, 1 TAB PO TID for UNK, #90 TAB 3 Refills 01/18/21 Valsartan (DIOVAN) 80 Mg Tablet, 80 MG PO BID for UNK, TAB 01/18/21 Latanoprost (LATANOPROST) 2.5 Ml Drops, 1 DROP OP DAILY for 30 Days 04/10/19 Levothyroxine Sodium (LEVOTHYROXINE SODIUM) 25 Mcg Tablet, 25 MCG PO DAILY for hypothyroidism for 30 Days, #30 04/10/19 Calcium Carbonate (CALCIUM) 600 Mg Tablet, 600 MG PO HS 02/20/14 Magnesium Oxide (MAGNESIUM OXIDE) 400 Mg Tablet, 2 TAB PO BID, #30 TAB 5 Refills 02/20/14 [place]-3 Fatty Acids (FISH OIL) 500 Mg Capsule.dr, 2000 MG PO BID 02/20/14 Albuterol Sulfate (VENTOLIN HFA INHALER) 18 Gm Hfa.aer.ad, 2 PUFF IH PRN Q4- 6HRS, #1 INHALER 02/20/14 Niacin (NIASPAN) 1,000 Mg Tab.er.24h, 1 TAB PO QHS, #30 TAB 5 Refills 02/20/14 Clopidogrel Bisulfate (CLOPIDOGREL) 75 Mg Tablet, 1 TAB PO DAILY, #90 TAB 1 Re fill 02/20/14 Allopurinol (ALLOPURINOL) 100 Mg Tablet, 1 TAB PO DAILY, #30 TAB 5 Refills 02/20/14 Loratadine (LORATADINE) 10 Mg Tablet, 1 TAB PO DAILY, #30 TAB 5 Refills 02/20/14 Folic Acid (FOLIC ACID) 1 Mg Tablet, 1 TAB PO DAILY, #90 TAB 1 Refill 02/20/14 Cilostazol (CILOSTAZOL) 100 Mg Tablet, 1 TAB PO BID, #60 TAB 5 Refills 02/20/14 Carvedilol (CARVEDILOL) 25 Mg Tablet, 1 TAB PO BID, #180 TAB 1 Refill 02/20/14 Discontinued Reported Medications Insulin Glargine,Hum.rec.anlog (LANTUS SOLOSTAR) 100 Unit/1 Ml Insuln.pen, 60 UNIT SQ QHS for UNK, SYR 02/20/14 Insulin Aspart (NOVOLOG) 100 Unit/1 Ml Cartridge, 20 UNIT SQ TIDAC for UNK, EACH 02/20/14 Scheduled Albuterol Sulfate (Ventolin Hfa Inhaler), 2 PUFF IH PRN Q4-6HRS, (Reported) Allopurinol (Allopurinol), 1 TAB PO DAILY, (Reported) Atorvastatin Calcium (Atorvastatin Calcium), 80 MG PO QHS, (Reported) Calcium Carbonate (Calcium), 600 MG PO HS, (Reported) Carvedilol (Carvedilol), 1 TAB PO BID, (Reported) Cefdinir (Cefdinir), 1 CAP PO BID Cholecalciferol (Vitamin D3) (Vitamin D3), 10 MCG PO DAILY, (Reported) Cilostazol (Cilostazol), 1 TAB PO BID, (Reported) Clopidogrel Bisulfate (Clopidogrel), 1 TAB PO DAILY, (Reported) Ezetimibe (Ezetimibe), 10 MG PO QHS, (Reported) Fenofibrate (Lipofen), 1 CAP PO DAILY, (Reported) Folic Acid (Folic Acid), 1 TAB PO DAILY, (Reported) Gabapentin (Gabapentin ), 100 MG PO BID, (Reported) Hydralazine Hcl (Hydralazine Hcl), 1 TAB PO TID, (Reported) Latanoprost (Latanoprost), 1 DROP OP DAILY, (Reported) Levothyroxine Sodium (Levothyroxine Sodium), 25 MCG PO DAILY, (Reported) Loratadine (Loratadine), 1 TAB PO DAILY, (Reported) Magnesium Oxide (Magnesium Oxide), 2 TAB PO BID, (Reported) Mecobalamin (B12 Active), 100 MCG PO DAILY, (Reported) Niacin (Niaspan), 1 TAB PO QHS, (Reported) [place]-3 Fatty Acids (Fish Oil), 2,000 MG PO BID, (Reported) Potassium Chloride (Klor-Con 10), 1 TAB PO DAILY, (Reported) Valsartan (Diovan), 80 MG PO BID, (Reported) [Lower Bowel Stim], 2 TAB PO DAILY, (Reported) Scheduled PRN Tramadol Hcl (Tramadol Hcl), 50 MG PO Q6HRS PRN for PAIN, (Reported) Discontinued Medications Insulin Aspart (Novolog), 20 UNIT SQ TIDAC, (Reported) Insulin Glargine,Hum.rec.anlog (Lantus Solostar), 60 UNIT SQ QHS, (Reported) Total Time: Total Time: Total time spent was 32 minutes in preparing scripts and discharge planning with SW and RN Patient seen and examined on day of Discharge. Justicifation of Admission Dx: Justifications for Admission: Justification of Admission Dx: Yes Sepsis: Infection ANA LUISA BRUCE MD Jan 24, 2021 21:09
== END 2021-01-22 15:25 | DRG 689 ==
LOC: ER 07:30 → ED HOLD 09:09 → 4 NORTH 11:39
PROVIDERS: ADMIT Internal Medicine; ATTEND Internal Medicine
DX: N30.00 Acute cystitis without hematuria (principal); N17.0 Acute kidney failure with tubular necrosis; Z68.41 Body mass index [BMI] 40.0-44.9, adult; E87.6 Hypokalemia; E03.9 Hypothyroidism, unspecified; E11.51 Type 2 diabetes mellitus with diabetic peripheral angiopathy without gangrene; E66.01 Morbid (severe) obesity due to excess calories; E78.00 Pure hypercholesterolemia, unspecified; E78.5 Hyperlipidemia, unspecified; I10 Essential (primary) hypertension; I25.10 Atherosclerotic heart disease of native coronary artery without angina pectoris; I25.2 Old myocardial infarction; R62.7 Adult failure to thrive; Z82.49 Family history of ischemic heart disease and other diseases of the circulatory system; Z86.73 Personal history of transient ischemic attack (TIA), and cerebral infarction without residual deficits; Z87.891 Personal history of nicotine dependence; Z90.710 Acquired absence of both cervix and uterus; M10.9 Gout, unspecified; Z20.822 Contact with and (suspected) exposure to COVID-19; Z88.8 Allergy status to other drugs, medicaments and biological substances; Z91.040 Latex allergy status
CPT/HCPCS: 36415; 80048; 80053; 81001; 82550; 82962; 83605; 83735; 84100; 85025; 87040; 87077; 87086; 87186; 87426; 87493; 87505; 93970; J0696; J1644; J3490; J7030; J7060; U0003; U0005; 97110-GP; 97530-GP; 99285-25; G0378

== ENCOUNTER 2021-04-18 17:46 | Emergency (ER) | payer MEDICARE, OTHER ==
[~2021-04-18 17:46] MED LIST changes: +ATOR80TA72 PO; +CEFD300C PO; +CHOL400C PO; +EZET10TA48 PO; +FENO150C PO; +GABA-585 PO; +HYDR100T24 PO; +MECO10005 PO; +POTA10TA12 PO; +TRAM50TA PO; +VALS80TA3 PO; +[UNRECOGNIZED DRUG - OTHER] PO
[2021-04-18 18:47] LABS: BASO % 1 % (0-3); EOS # 0.2 x10^3/uL (0.0-0.7); EOS % 3 % (0-3); HEMATOCRIT 28.2 % (36.0-47.0); HEMOGLOBIN 9.1 g/dL (12.0-15.5); LYMPH # 1.5 x10^3/uL (1.0-4.8); LYMPH % 26 % (24-48); MEAN CORPUSCULAR HEMOGLOBIN 30 pg (25-35); MEAN CORPUSCULAR HGB CONC 32 g/dL (31-37); MEAN CORPUSCULAR VOLUME 93 fL (79-100); MONO # 0.6 x10^3/uL (0.0-1.1); MONO % 10 % (0-9); NEUT # 3.6 x10^3/uL (1.8-7.7); NEUT % 61 % (31-73); PLATELET COUNT 182 x10^3/uL (140-400); RED BLOOD COUNT 3.04 x10^6/uL (3.50-5.40); RED CELL DISTRIBUTION WIDTH 16.8 % (11.5-14.5); WHITE BLOOD COUNT 5.9 x10^3/uL (4.0-11.0)
--- NOTE | 2021-04-18 19:08 | PHYS DOC ---
Past Medical History Past Medical History: CVA, Diabetes-Type II, High Cholesterol, Hypertension, MT, Other Additional Past Medical Histor: gout, PVD, OSTEOARTHRITIS Past Surgical History: Hysterectomy, Other Additional Past Surgical Histo: thyroid, left leg stents Smoking Status: Former Smoker Alcohol Use: None Drug Use: None General Adult EDM: Chief Complaint: WEAKNESS/GENERALIZED HPI: HPI: Patient is a 70 year old female with history of CKD, HTN, HLD, previous CVA who presents with generalized weakness for several days. The patient is a very poor historian repeatedly states "my knows the details." Her has not yet presented to the emergency department. Per EMS the patient had outpatient labs through [facility]. These were faxed over and showed an [place] with creatinine 2.5. Potassium 5.5. And anemia to 9.6. The patient's only complaint is of right lower extremity discomfort. Feels that it is swollen and is tender to move. She does believe she takes a blood thinner, but is unsure which medication. No medication list is available at this time. Review of Systems: Review of Systems: Constitutional: Denies fever or chills. Reports generalized fatigue. [] Eyes: Denies change in visual acuity. [] HENT: Denies nasal congestion or sore throat. [] Respiratory: Denies cough or shortness of breath. [] Cardiovascular: Denies chest pain or edema. [] GI: Denies abdominal pain, nausea, vomiting, bloody stools or diarrhea. [] : Denies dysuria. [] Musculoskeletal: Reports right leg discomfort Integument: Denies rash. [] Neurologic: Denies headache, focal weakness or sensory changes. [] Endocrine: Denies polyuria or polydipsia. [] Lymphatic: Denies swollen glands. [] Psychiatric: Denies depression or anxiety. [] Heart Score: C/O Chest Pain: No Allergies: Allergies: Allergies Coded Allergies Type Severity Reaction Last Updated Verified Penicillins Allergy Intermediate tolerates Rocephin 01/19/21 Yes iodine Allergy Intermediate 09/16/14 Yes latex Allergy Intermediate Rash 02/20/14 Yes Physical Exam: PE: Constitutional: Well developed, well nourished, no acute distress, non-toxic appearance. [] Neck: Normal range of motion, no tenderness, supple, no stridor. [] Cardiovascular:Heart rate regular rhythm, no murmur [] Lungs & Thorax: Bilateral breath sounds clear to auscultation [] Abdomen: Soft, obese, nontender Skin: Warm, dry, no erythema, no rash. [] Extremities: Bilateral lower extremities with mild edema, (R>L), tenderness to the touch over the calf and the medial thigh. No overlying skin changes. Neurologic: Alert and oriented to person, place, time but is very forgetful with details of her situation. Moving all 4 extremities purposefully. Psychologic: Affect normal, judgement normal, mood normal. [] Current Patient Data: Labs: Laboratory Tests Test 04/18/21 18:40 04/18/21 19:24 White Blood Count 5.9 x10^3/uL Red Blood Count 3.04 x10^6/uL Hemoglobin 9.1 g/dL Hematocrit 28.2 % Mean Corpuscular Volume 93 fL Mean Corpuscular Hemoglobin 30 pg Mean Corpuscular Hemoglobin Concent 32 g/dL Red Cell Distribution Width 16.8 % Platelet Count 182 x10^3/uL Neutrophils (%) (Auto) 61 % Lymphocytes (%) (Auto) 26 % Monocytes (%) (Auto) 10 % Eosinophils (%) (Auto) 3 % Basophils (%) (Auto) 1 % Neutrophils # (Auto) 3.6 x10^3/uL Lymphocytes # (Auto) 1.5 x10^3/uL Monocytes # (Auto) 0.6 x10^3/uL Eosinophils # (Auto) 0.2 x10^3/uL Basophils # (Auto) 0.0 x10^3/uL Prothrombin Time 12.9 SEC Prothromb Time International Ratio 1.0 Sodium Level 142 mmol/L Potassium Level 4.7 mmol/L Chloride Level 109 mmol/L Carbon Dioxide Level 27 mmol/L Anion Gap 6 Blood Urea Nitrogen 34 mg/dL Creatinine 2.4 mg/dL Estimated GFR (Cockcroft-Gault) 24.0 BUN/Creatinine Ratio 14 Glucose Level 91 mg/dL Calcium Level 8.5 mg/dL Phosphorus Level 3.0 mg/dL Magnesium Level 3.1 mg/dL Total Bilirubin 0.2 mg/dL Aspartate Amino Transf (AST/SGOT) 16 U/L Alanine Aminotransferase (ALT/SGPT) 20 U/L Alkaline Phosphatase 50 U/L Creatine Kinase 101 U/L Total Protein 5.9 g/dL Albumin 2.4 g/dL Albumin/Globulin Ratio 0.7 SARS-CoV-2 Antigen (Rapid) Negative Current Medications Medications (Trade) Dose Ordered Sig/Brittany Route PRN Reason Start Time Stop Time Status Last Admin Dose Admin Acetaminophen (Tylenol) 1,000 mg 1X ONCE PO 04/18/21 20:15 04/18/21 20:36 DC 04/18/21 20:20 EKG: EKG: Sinus rhythm. Rate 68. Left axis deviation. Borderline wide QRS. Left anterior fascicular block. Low voltage throughout. [] Radiology/Procedures: Radiology/Procedures: [] Course & Med Decision Making: Course & Med Decision Making Pertinent Labs and Imaging studies reviewed. (See chart for details) Patient 70-year-old female who presents to the emergency department with complaints of generalized weakness and right lower extremity swelling and pain and concern of abnormal outpatient labs. Outpatient labs showed a creatinine of 2.5 and a potassium of 5.5 on labs taken 5 days ago on 1907 RLE DVT US negative. No hydronephrosis on renal US. Cr today is 2.4, stable going back to 2014 (has been 2.2) and potassium of 4.7. Discussed that her kidney function is stable and that her potassium is in the normal range today with the patient and her . I have not found a reason for hospitalization today, I have asked that they follow-up closely with her PCP for consideration of lab redraw to ensure that potassium and kidney function remained stable. Patient's states that he will call first thing tomorrow morning to schedule follow-up labs and appointments. Return precautions discussed. Andrew Disclaimer: Andrew Disclaimer: This electronic medical record was generated, in whole or in part, using a voice recognition dictation system. Departure Departure Impression: Primary Impression: CKD (chronic kidney disease) Additional Impression: Right leg pain Disposition: HOME / SELF CARE / HOMELESS Condition: STABLE Referrals: PATRICIA DOLL MD (PCP) Additional Instructions: Your kidney function and potassium was stable today. Your creatinine (a marker for kidney function) was 2.4, and your potassium was 4.7 which is well within the normal range. This is reassuring, however you will need close follow-up with your primary care doctor to ensure that your potassium and kidney function remained stable. You will likely need repeat labs. Please be sure to remain well-hydrated and drink plenty of fluids. If you develop shortness of breath, chest pain, palpitations, lightheadedness, or other new/concerning symptoms please return to the emergency department for reevaluation. CHRISTINE LOWE MD Apr 18, 2021 19:08
[2021-04-18 19:12] LABS: PROTHROMBIN TIME PATIENT 12.9 SEC (11.7-14.0)
[2021-04-18 19:13] LABS: CALCIUM 8.5 mg/dL (8.5-10.1); CREATININE 2.4 mg/dL (0.6-1.0); POTASSIUM 4.7 mmol/L (3.5-5.1)
[2021-04-18 19:19] LABS: ALBUMIN 2.4 g/dL (3.4-5.0); ALBUMIN/GLOBULIN RATIO 0.7 (1.0-1.7); MAGNESIUM 3.1 mg/dL (1.8-2.4); TOTAL BILIRUBIN 0.2 mg/dL (0.2-1.0); TOTAL PROTEIN 5.9 g/dL (6.4-8.2)
--- NOTE | 2021-04-18 20:01 | RAD ---
Right lower extremity venous duplex study 04/18/2021 Clinical History: Right leg swelling. Technique: Using a combination of real time ultrasound imaging and color-flow and pulse Doppler imagi ng techniques along with graded compression and augmentation, duplex evaluation of the deep venous sy stem of the right lower extremity was performed. Multiple images were obtained. Findings: There is no sonographic evidence of deep venous thrombosis involving the visualized deep ve nous structures of the right lower extremity. Impression: Negative study. Electronically signed by: Renard Cleary MD (04/18/2021 7:58 PM) [id number]
[2021-04-18] MEDS ORDERED: ACETAMINOPHEN 500 MG TABLET PO ONE (20:15)
--- NOTE | 2021-04-18 20:30 | RAD ---
EXAM: US RENAL BILAT 04/18/2021 6:27 PM INDICATION: Acute kidney injury COMPARISON: Renal ultrasound 07/14/2020 TECHNIQUE: Grayscale and color Doppler ultrasound images of the kidneys FINDINGS: The right kidney measures 9.5 x 4.3 x 4.0 cm. No hydronephrosis. The left kidney measures approximate ly 10.4 x 5.6 x 4.9 cm. There is limited visualization of the left kidney due to extensive shadowing from bowel gas. No obvious left hydronephrosis. The bladder is incompletely distended but unremarkable. IMPRESSION: No right hydronephrosis. There is limited visualization of the left kidney due to shadowi ng but no obvious left hydronephrosis. Electronically signed by: Velia Gould MD (04/18/2021 8:28 PM) [id number]
[2021-04-18 22:00] VITALS: BP 142/65
--- NOTE | 2021-04-20 07:50 | EKG ---
[facility] [address] [place] [address] Test Date: 2021-04-18 Test Time: 18:14:27 Pat Name: AMIRA MOTA Department: Room: Gender: F Graphic Specialist: : [id number] Requested By: CHRISTINE LOWE Order Number: [id number] Reading MD: Tono Lloyd MD Measurements Intervals [place] Rate: 68 P: 0 LA: 156 QRS: -32 QRSD: 94 T: 41 QT: 366 QTc: 389 Interpretive Statements SINUS RHYTHM CONSIDER INFERIOR INFARCT IVCD Electronically Signed On 04-21-2021 9:09:23 MAP MAKER by Tono Lloyd MD
== END 2021-04-18 22:37 | disposition home or self-care (01) ==
LOC: ER 17:46
DX: I12.9 Hypertensive chronic kidney disease with stage 1 through stage 4 chronic kidney disease, or unspecified chronic kidney disease (principal); E11.22 Type 2 diabetes mellitus with diabetic chronic kidney disease; N18.9 Chronic kidney disease, unspecified; M79.604 Pain in right leg; E78.00 Pure hypercholesterolemia, unspecified; I25.2 Old myocardial infarction; M19.90 Unspecified osteoarthritis, unspecified site; E78.5 Hyperlipidemia, unspecified; Z20.822 Contact with and (suspected) exposure to COVID-19; Z86.73 Personal history of transient ischemic attack (TIA), and cerebral infarction without residual deficits; Z88.0 Allergy status to penicillin; Z91.040 Latex allergy status; Z88.8 Allergy status to other drugs, medicaments and biological substances
CPT/HCPCS: 36415; 76770; 80053; 82550; 83735; 84100; 85025; 85610; 87426; 93005; 93971; 99285; U0003; U0005